=== PATIENT | male | born 1960 | race Caucasian/White ===

== ENCOUNTER 2017-01-10 12:01 | Inpatient (IN) | payer OTHER ==
[~2017-01-10] VITALS: Ht 175.3 cm; Wt 75.6 kg
[~2017-01-10 12:01] MED LIST: CEPH500T PO; HYDR8TAB PO; OMEP20TA86 PO; SIMV20TA4 PO; WARF10TA4 PO; WARF7.5T4 PO; triple swish PO
[2017-01-10 12:17] VITALS: BP 133/82; PULSE 80; RESP 22; O2SAT 97
[2017-01-10] MEDS ORDERED: Dextrose 5% 0.45% NaCl 1,000 ML IV SCH (12:30)
[2017-01-10] MEDS ORDERED: Ondansetron 2 mg/mL 2 mL Inj IV PRN (12:30)
[2017-01-10] MEDS ORDERED: 0.9% Sodium Chloride 1,000 ML IV ONE ×2 (12:30)
[2017-01-10 12:59] LABS: BASOPHILS % (AUTO) 0.4 % (0-3); EOSINOPHILS % (AUTO) 0.7 % (0-5); MONOCYTES % (AUTO) 21.6 % (4-12); Mean Corpuscular Hemoglobin 29.5 pg (27.0-35.0); Mean Corpuscular Volume 83.5 fL (81-100); Platelet Count 224 bil/L (150-400)
[2017-01-10 13:15] LABS: INR 1.16 ratio
[2017-01-10 13:30] LABS: Magnesium 0.8 mg/dL (1.6-2.6)
[2017-01-10] MEDS ORDERED: Magnesium Sulf 2 Gm/50mL Water 2 GM in IV Premix 1 EACH IV ONE ×2 (13:35→17:00)
[2017-01-10] MEDS ORDERED: KCl 40 mEq/D5W 500 mL 40 MEQ in IV Premix 1 EACH IV ONE (13:35)
--- NOTE | 2017-01-10 14:24 | ED.REPORT ---
HPI-General Illness Date of Service Jan 10, 2017 ED Provider: Bryce Foreman DO 56 y/o male with a hx of throat cancer (s/p chemotherapy completed a week ago) presents to the ED complaining of severe vomiting, with more than three episodes every day, for the past week. Associated sx include extreme weakness and shaking. The pt has not been able to keep anything down for several days and has been unable to stand up on his own without assistance. He has also been throwing up all the medications, including those for nausea. The pt was taken off Warfarin this week due to his high INR between 7-10. As per the , the pt had some blood in the vomit yesterday. He denies hematuria but reports it being very dark in color. The pt got 1-2 bags of fluid throughout this week, with little change in his sx. He also denies hematochezia. The pt was scheduled to get a PEG tube but his sx worsened so he came to the ED instead. Code status: full code Nursing Notes Stated Complaint: WEAKNESS/DEHYDRATION Chief Complaint: Male Abdominal Pain Nursing Notes Reviewed: Yes Allergies: Coded Allergies: No Known Allergies (Unverified , 01/10/17) Scheduled Fluconazole (Fluconazole Liquid) 10 Mg/1 Ml Susp.recon 10 ML PO DAILY Ondansetron ODT (Ondansetron ODT) 4 Mg Tab.rapdis 4 MG PO 5-6X daily Simvastatin (Simvastatin) 20 Mg Tablet 20 MG PO HS Warfarin Sodium (Warfarin Sodium) 7.5 Mg Tablet 11.25 MG PO Monday11/22/16 Scheduled PRN Hydromorphone (Hydromorphone) 8 Mg Tablet 8 MG PO Q6H PRN PRN Pain Lorazepam (Lorazepam) 0.5 Mg Tablet 0.5 MG PO TID PRN PRN For Anxiety General Time Seen by MD: 12:22 Chief Complaint Vomiting Hx Obtained From: Patient, Spouse Arrived By: Walk-in Sudden in Onset?: Yes Onset Occurred: 1 week ago Symptom Duration: Since onset Severity: Current: No pain currently Severity: Maximum: No pain Recent Healthcare: Recent doctor visit Similar Sx Previous: No Past Medical History Past Medical History Notes: Code status: Full code Past Medical History Throat cancer Past Surgical History Hernia/Tonsils Smoking History Former Smoker Social History Lives in [place] Other Social History: Good social support, Ambulatory Status Independent Review of Systems Full Review of Systems Constitutional: Reports: Weakness - generalized GI: Reports: Hematemesis (mild), Nausea, Vomiting, Denies: Hematochezia Male: Denies Hematuria Neurologic: Reports: Shaking Complete sys rev & neg: except as marked. Physical Exam Vital Signs Vital Signs Date Time Temp Pulse Resp B/P Pulse Ox O2 Delivery O2 Flow Rate FiO2 01/10/17 12:17 36.7 80 22 133/82 97 Room Air Initial VS: Reviewed Head / Eyes: Atraumatic, Normocephalic Neck: Supple Respiratory: Breath sounds normal, Clear to auscultation, No respiratory distress Cardiovascular: Regular rate & rhythm, Heart sounds normal, Intact distal pulses Abdomen / GI: Soft, Non-tender Extremities: Vascular intact, Neuro intact, No swelling, No tenderness Skin: Warm, Dry, No cyanosis Neurologic: Alert, Oriented, Nonfocal General/Constitutional: Awake, Alert, Cooperative Tremulous and pale Interpretation & Diagnostics Lab Results Interpretation Result Diagram: 01/10/17 1237 01/10/17 1237 Test 01/10/17 12:37 White Blood Count 2.7th/mm3 (3.8-10.1) Red Blood Count 4.13mil/mm3 (4.40-5.80) Hemoglobin 12.2g/dL (13.8-17.2) Hematocrit 34.5% (41.0-50.0) Mean Corpuscular Volume 83.5fL (81-100) Mean Corpuscular Hemoglobin 29.5pg (27.0-35.0) Mean Corpuscular Hemoglobin Concent 35.4% (32.0-37.0) Red Cell Distribution Width 13.4% (12.3-15.4) Platelet Count 224bil/L (150-400) Neutrophils (%) (Auto) 34.0% (40-74) Lymphocytes (%) (Auto) 42.9% (14-46) Monocytes (%) (Auto) 21.6% (4-12) Eosinophils (%) (Auto) 0.7% (0-5) Basophils (%) (Auto) 0.4% (0-3) Prothrombin Time 12.4sec (8.1-12.5) Prothromb Time International Ratio 1.16ratio Sodium Level 136mEq/L (134-144) Potassium Level 3.2mEq/L (3.5-5.2) Chloride Level 92mEq/L (97-108) Carbon Dioxide Level 23mmol/L (18-29) Blood Urea Nitrogen 6mg/dL (6-24) Creatinine 0.76mg/dL (0.76-1.27) Estimat Glomerular Filtration Rate 114mL/min (>59) Glucose Level 101mg/dL (60-99) Calcium Level 8.1mg/dL (8.5-10.1) Magnesium Level 0.8mg/dL (1.6-2.6) Total Bilirubin 1.0mg/dL (0.0-1.2) Aspartate Amino Transf (AST/SGOT) 22U/L (0-50) Alanine Aminotransferase (ALT/SGPT) 18U/L (0-44) Alkaline Phosphatase 81U/L (25-150) Total Protein 5.8g/dL (6.4-8.4) Albumin 3.3g/dL (3.4-5.0) Hold Amezcua Top Tube Received (Received) Re-Eval/Medical Decision Med Decision/Clinical Course Dehydration and severe lateral abnormality. Patient will be admitted for PEG tube placement and magnesium and potassium replacement. Time of Eval: 14:15 Re-Evaluation/Progress Note: Rechecked pt. Discussed lab results, diagnosis and plan to admit. Pt understands and agrees with the plan for admission. All questions addressed. Consultation #1: Referral / Consult Name: Yoseph Huffman MD Consulted With: Hospitalist Call Returned at: 14:40 Board Certified Family Physician: Will see patient, Agrees with eval, Agrees with plan, Accepts admit Consultation #2: Consulted With: Surgeon Call Returned at: 13:52 Board Certified Family Physician: Will see patient, Agrees with plan Note: Dr. Ferrara's nurse confirms Dr. Ferrara will see the pt on floor. Counseled Regarding: Diagnosis, Lab results, Need for admission Discharge & Departure Primary Impression: Dehydration Additional Impressions: Persistent vomiting Hypomagnesemia Disposition: ADMITTED TO HOSPITAL Discharge Condition All VS Reviewed: Yes Referrals: Benjamín Davalos MD (PCP) Scribe Attestation Portions of this note were transcribed by Manoj Macdonald. IDr.O'Kelley, personally performed the history, physical exam and medical decision-making;I reviewed and confirmed the accuracy of the information in the transcribed note. Signed by Danny Bills. 01/10/17 15:08 copies to: Benjamín Davalos MD, Timothy S DO Jan 10, 2017 14:24 Manoj Macdonald Jan 10, 2017 14:59
[2017-01-10] MEDS ORDERED: D5 0.45% NaCl + KCl 20 mEq/L 1,000 ML IV SCH (15:01)
[2017-01-10] MEDS ORDERED: Ondansetron 2 mg/mL 2 mL Inj IVPUSH PRN (15:05)
[2017-01-10] MEDS ORDERED: LORA0.5T PO (15:09)
[2017-01-10] MEDS ORDERED: ONDA4TAB12 PO (15:09)
[2017-01-10] MEDS ORDERED: FLUC10SU2 PO (15:09)
--- NOTE | 2017-01-10 15:14 | PCM.HPMED ---
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 Outpatient oncologist is Dr. Randall Reynolds. Patient recently was treated with combined modality therapy with cisplatin last given 12/22/2016 and radiation treatment last given December 30. Since last treatment patient had significant nausea with vomiting. Patient has lost almost 20 pounds since November 24. Has refused a PEG tube on multiple occasions. Patient reports odynophagia has been unable to maintain by mouth intake therefore has been going to oncology clinic for daily infusions. no diarrhea or change in bowel habits. Denies chest pain shortness of breath. Recent labs- 01/09-The white count is 2.2 with 62.1 neutrophils, hemoglobin 12.4 , hematocrit 37.1, platelets 117. The BUN and creatinine are 10 and 0.88, potassium 3.3, albumin remains normal at 3.6. ALT, AST, alkaline phosphatase and bilirubin are normal. Review of Systems: 12 point review of symptoms negative except for history of present illness. Allergies Coded Allergies: No Known Allergies (Unverified , 01/10/17) Home Medications 1. Cephalexin 500 mg. 2. Warfarin 15 mg. 3. Simvastatin 20 mg. 4. Hydromorphone 8 mg. 5. Omeprazole 20 mg. 6. Triple swish. PMH squamous carcinoma of the base of the tongue with two necrotic left neck nodes, stage TIMOTHY, Odynophagia history of portal vein thrombosis and and multiple superficial thromboses on chronic anticoagulation with Coumadin hyperlipidemia, malnutrition, GERD Surgical History Tonsillectomy. Sinus surgery. Hernia surgery. Colonoscopy approximately two years ago Social History Hx Alcohol Use: No Hx Substance Use: No Hx Tobacco Use: Yes Smoking Status: Former Smoker Living Arrangement: with Family Exam Vital Signs Vital Sign - Last Date Time Temp Pulse Resp B/P Pulse Ox O2 Delivery O2 Flow Rate FiO2 01/10/17 12:17 36.7 80 22 133/82 97 Room Air Exam Gen: NAD, AOx3. HEENT: NCAT, PERRLA, EOMI, MMM, sclera anicteric. Neck: Soft, supple, symmetrical, no thyromegaly/JVD/LAD. Resp: CTAB, no R/R/W. CV: RRR, nl S1/S2, no M/R/G, Abd: Soft, (+) BS, no guarding/rebound/organomegaly. Ext: +PP, -edema Skin: warm/dry/intact Neuro/Psych: No focal deficits, CN II-XII grossly intact. AAOx3, cooperative , appropriate mood/affect. 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 #squamous carcinoma of the base of the tongue with two necrotic left neck nodes , stage TIMOTHY. His Oncologist, Dr. Randall Reynolds, has discussed getting PEG. In past patient has refused but patient has now agreed and was to get it next week. - Surgery, Dr. Ferrara, will be seeing patient to evaluate for PEG tube. She is currently off Coumadin with INR 1.16. - We will keep nothing by mouth. - Nausea continue antiemetics. - Continue with IV fluids D5 half-normal K - Dilaudid IV prn. Give single dose Lovenox for DVT ppx today. - Follow-up with oncology and surgery at medications. #Neutropenia- likely secondary to chemotherapy. Initial ANC of 918. - If febrile we will culture and would then consider antibiotics. - Neutropenic precautions - Repeat CBC in a.m. #Malnutrition- 2/2 to above. c/o odynophagia. -Continue with IV fluids D5 half-normal K 20 mEq. -See plan above #history of portal vein thrombosis and and multiple superficial thromboses on chronic anticoagulation with Coumadin which was held due to INR greater than 10. Currently INR is subtherapeutic at 1.16. We will continue to hold Coumadin pending surgery evaluation. No bridging per Oncology, will give single dose Lovenox for DVT ppx today in case Surgery Wed. #Hypomagnesemia-severe, presentation on admission. Mg-0.8 initially. He received 2 g of mag sulfate, will give an additional 4 g. -Recheck magnesium in a.m. #Hypokalemia- replete with goal of potassium before. Will include IV fluids with potassium supplementation. -Repeat in a.m. #GERD- start famotidine IV Chronic Issues #HLD- continue home med atorvastatin Pain Evaluation: Adequate Pain Control VTE Prophylaxis Indicated: Contraindicated (Holding off bridging as may go to OR Mon AM per Oncology. ) VTE Prophylaxis: Sub-Q Enoxaparin VTE Mechanical Devices: Intermittant Pneumatic CD Resuscitation Status: CPR: Attempt Resuscitation Time spent 60 minutes Yoseph Huffman MD Jan 10, 2017 15:14
[2017-01-10] MEDS ORDERED: HYDROmorphone 0.5 mg/0.5 mL iSecure Syringe IVPUSH PRN ×2 (15:20→23:20)
[2017-01-10 15:41] VITALS: BP 128/80; PULSE 81; RESP 20; O2SAT 96
[2017-01-10] MEDS ORDERED: Alum-Mag Hydrox-Simeth 30 mL Suspension PO PRN (16:50)
[2017-01-10] MEDS ORDERED: Polyethylene Glycol (PEG) 17 Gm Powder PO PRN (16:50)
[2017-01-10] MEDS ORDERED: LORazepam 0.5 mg Tablet PO PRN (17:00)
[2017-01-10 17:04] VITALS: BP 126/78; PULSE 65; RESP 16; O2SAT 98
[2017-01-10] MEDS ORDERED: HYDROmorphone 1 mg/mL Inj IVPUSH PRN ×2 (17:05→18:05)
[2017-01-10] MEDS ORDERED: Sodium Chloride LOK Flush 10 mL Syringe IVFLUSH PRN ×2 (17:20)
--- NOTE | 2017-01-10 19:05 | NUR ---
Admit note- Received patient from Emergency dept. alert and oriented. Patient complaining of 7/10 abd. pain. No signs of resp distress. No difficulty swallowing. Oriented patient to room, call light, etc.
[2017-01-10 20:06] VITALS: BP 138/83; PULSE 65; RESP 20; O2SAT 99
[2017-01-10] MEDS ORDERED: 0.9% Sodium Chloride 100 ML ONE (20:46)
[2017-01-10] MEDS: Ondansetron 2 mg/mL 2 mL Inj IVPUSH PRN (21:02)
[2017-01-10] MEDS: Famotidine Inj 20 MG in IV Premix 1 EACH IV SCH (21:09)
[2017-01-10] MEDS: D5 0.45% NaCl + KCl 20 mEq/L 1,000 ML IV SCH (21:57)
[2017-01-10] MEDS: HYDROmorphone PCA 0.2 mg/mL 30 mL Inj IV PRN (23:59)
[2017-01-11] VITALS (12 sets, daily range): BP systolic 126–139; BP diastolic 76–90; PULSE 57–107; RESP 16–18; O2SAT 97–100
[2017-01-11] MEDS: Ondansetron 2 mg/mL 2 mL Inj IVPUSH PRN ×6 (02:01→23:11)
[2017-01-11] MEDS: D5 0.45% NaCl + KCl 20 mEq/L 1,000 ML IV SCH ×3 (02:50→18:45)
--- NOTE | 2017-01-11 04:20 | NUR ---
Pain/Nausea On initial assessment, patient stated pain 6/10 on pain scale. 2mg IVP of Dilaudid administered. Patient states that he takes 8mg PO at home. Dr. Grullon paged to increase dose. Physician ordered RELIEF PHARMACIST for patient. Patient complained of nausea throughout shift. 4mg Zofran IVP administered x2. Patient stated that the nausea is delayed reaction to radiation and chemo. VSS. D5 1/2NS + 20 meq K+ running at 100/hr. Call light within reach. Care continues.
[2017-01-11] MEDS: HYDROmorphone PCA 0.2 mg/mL 30 mL Inj IV PRN ×3 (05:05→19:03)
--- NOTE | 2017-01-11 05:46 | CONS ---
[address] [address] CONSULTATION REPORT PATIENT: DYLON CEDILLO : 1960 MR#: [id number] ADMIT: 01/10/2017 JOB ID: [id number] DATE OF SERVICE: 01/10/2017 CHIEF COMPLAINT: A 56-year-old gentleman with dysphagia, vomiting and weight loss from chemoradiation for head and neck cancer seen in consultation at the request of Bryce Perez D.O. HISTORY OF PRESENT ILLNESS: The patient is a 56-year-old gentleman who discovered a lump in his left neck in August 2016 which eventually led to the diagnosis of a T2 N2b squamous cell carcinoma of the base of the tongue. He has been undergoing treatment with cisplatin and radiation. I saw him on December 20, [address] Reynolds to discuss gastrostomy tube options. At that time, he was still yet to undergo one more cycle of chemoradiation, and the patient felt he was able to keep on his weight and may be actually put on a few pounds with protein shakes and liquid diet. Since then, he has finished his last cycle of chemoradiation, and he has significantly deteriorated in his nutritional intake with incessant vomiting and inability to keep even liquids down. He has lost over 20 pounds since even when I had seen him a few weeks ago. OTHER MEDICAL PROBLEMS: 1. Hypercoagulability with portal vein thrombosis in the past (he has been on Coumadin but has not taken it over the last week). 2. Hyperlipidemia. 3. Gastroesophageal reflux. PRIOR OPERATIONS: 1. Tonsillectomy. 2. Sinus surgery. 3. Umbilical hernia repair at [facility] five years ago. REVIEW OF SYSTEMS: Twelve point review of systems negative other than the pertinent positives noted in history of present illness and other medical problems. MEDICATIONS: 1. Warfarin on hold. 2. Simvastatin. 3. Hydromorphone. 4. Omeprazole. 5. Dexamethasone. 6. Lorazepam. 7. Ondansetron. ALLERGIES: No known drug allergies. FAMILY HISTORY: Grandfather had stroke and [place]. Mother had a stroke. SOCIAL HISTORY: He smokes cigars occasionally. He used to drink alcohol about three drinks every day. 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 INVESTIGATIONS: A PET-CT, November 04, 2016, mass involving the base of tongue with maximum SUV of 14.9 with enlarged left level 2 lymphadenopathy with maximum SUV of 3.9 and 3.5. No evidence of distant disease beyond that. LABORATORIES: January 10, 2017, WBC of 2.7, hemoglobin 12.2, platelet count 224. Potassium of 3.2, chloride of 92, glucose of 101, magnesium of 0.8, albumin of 3.3. INR of 1.16. PHYSICAL EXAMINATION: A 56-year-old gentleman appears weak. BMI 24.6, temperature 36.7, pulse 81, blood pressure 128/80, saturating 96% on room air. Eyes: Normal pupils, conjunctivae. Ears, nose and throat: Oropharynx mucosa appears red. Neck: Palpable left cervical adenopathy. Respiratory: Normal effort, clear to auscultation. Cardiovascular: Regular rate and rhythm. Chest: Normal. Gastrointestinal: Abdomen is soft, well-healed umbilical incision. Genitourinary: Deferred. Lymphatic: No other adenopathy beyond the neck. Musculoskeletal: Normal strength in extremities. Skin: Normal. Neurologic: No focal deficits. Psychiatric: Alert, appropriate. ASSESSMENT AND PLAN: T2 N2b squamous cell carcinoma, status post chemoradiation with malnutrition secondary to diet. Recommended laparoscopic gastrostomy which I plan to do December. Now that he is off the warfarin I would hold off on long-acting anticoagulants until the procedure. Discussed the risks, benefits and alternatives, and the patient and his agree to proceed. [facility]
[2017-01-11 06:06] LABS: BASOPHILS % (AUTO) 0.5 % (0-3); EOSINOPHILS % (AUTO) 1.6 % (0-5); MONOCYTES % (AUTO) 21.4 % (4-12); Mean Corpuscular Volume 85.4 fL (81-100); NEUTROPHILS % (AUTO) 31.7 % (40-74); Platelet Count 184 bil/L (150-400)
[2017-01-11 06:17] LABS: Phosphorus 2.2 mg/dL (2.5-4.9)
[2017-01-11] MEDS ORDERED: KCl 40 mEq/100 mL (CENTRAL) 40 MEQ in IV Premix 1 EACH IV ONE (07:20)
[2017-01-11] MEDS ORDERED: Magnesium Sulf 4 Gm/100 mL H2O 4 GM in IV Premix 1 EACH IV ONE (07:20)
[2017-01-11] MEDS: Famotidine Inj 20 MG in IV Premix 1 EACH IV SCH ×2 (09:10→20:21)
[2017-01-11] MEDS: Fluconazole Inj 200 MG in IV Premix 1 EACH IV SCH (10:23)
--- NOTE | 2017-01-11 12:48 | NUR ---
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 Reynolds. Patient has lost almost 20 pounds since November 24. Has refused a PEG tube on multiple occasions. Patient reports odynophagia has been unable to maintain by mouth intake and therefore has been going to oncology clinic for daily infusions. PEG tube now scheduled for tomorrow, 01/12. PMHx:Squamous carcinoma of the base of the tongue with two necrotic left neck nodes, stage TIMOTHY, odynophagia, portal vein thrombosis with multiple superficial thromboses on chronic anticoagulation with Coumadin, dyslipidemia, malnutrition, GERD. DIET:NPO. LABS: Reviewed. K+ 2.9, Chloride 95, BUN 34, Cr 0.72, Glu 108, Ca 7.2, Phos 2.2, Mg 1.0, Alb 2.7. MEDICATIONS: Reviewed. NUTRITION FOCUSED PHYSICAL ASSESSMENT: GI symptoms / stool: No stool reported. Tru: 16. Skin Integrity: No issues reported. ANTHROPOMETRICS: Current Wt: 75.6 kgBMI: 24.0 kg/m2. Weight loss: 23.2 kg x 3 months (23.48%), 10.1 kg x 1 month (11.79%) = severe malnutrition. IBW: 72.73% (104% IBW) ESTIMATED NEEDS (SEVERE MALNUTRITION, STAGE TIMOTHY H&N CANCER): Calories: 2268 - 2646 kcal (30 - 35 kcal / kg BW) Protein: 113 - 151 g protein (1.5 - 2.0 g / kg BW) Fluid: Approx. 2646 mL fluid (35 mL / kg BW) NUTRITION DIAGNOSIS: 1)Inadequate oral intake related to altered GI function, as evidenced by severe malnutrition. INTERVENTION: 1) PEG tube recommendation follows; orders in chart for provider authorization. Recommend Jevity 1.5 at 15 mL/hr x 24 hr. Once tolerance established, advance 5 ml every 4 hr. to goal rate 70 mL/hr x 23 hr. Once enteral feeding at goal rate, recommend transition to nocturnal bolus feedings: advance 5 ml every 4 hr. to goal rate 107 mL x 15 hr. Enteral feeding at goal will provide 2415 kcal, 103 g protein, sufficient to meet 100% kcal / approx. 82% protein. 2) Recommend supplement enteral feeding with approx. 25 - 35 g protein to better meet protein needs. MONITOR/EVALUATE: PEG tube placement, enteral feeding initiation / tolerance, PO intake, labs, GI/nutrition status. Follow up per high nutrition risk guidelines. Addendum: 01/11/17 at [address] In the event IV fluids are not ordered, the patient will require 35 mL H2O every hour flush dose.
--- NOTE | 2017-01-11 15:36 | PCM.PNMED ---
Subjective Date of Service Jan 11, 2017 Subjective Patient reports persistent nausea overnight. Pain was moderately well controlled on Dilaudid [employer]. Abdominal pain is slightly improved. Still cannot tolerate anything by by mouth. Exam Vital Signs Vital Sign - Last Date Time Temp Pulse Resp B/P Pulse Ox O2 Delivery O2 Flow Rate FiO2 01/11/17 13:04 99 01/11/17 12:59 36.9 61 18 134/83 Room Air Intake and Output 01/10/17 01/10/17 01/11/17 Cumulative From/Thru 15:00 23:00 07:00 01/10/17 12:17 - 01/11/17 06:35 Intake Total 2000 ml 0 ml 4858 ml 6858 ml Output Total 0 ml 2425 ml 2425 ml Balance 2000 ml 0 ml 2433 ml 4433 ml Intake Oral 0 ml 0 ml 0 ml IV Total 2000 ml 4858 ml 6858 ml Output Urine Total 0 ml 2425 ml 2425 ml Exam Gen: NAD, AOx3. Cachectic appearing HEENT: NCAT, PERRLA, EOMI, MMM, sclera anicteric. + Oral thrush evident Neck: Soft, supple, symmetrical, palpable left anterior cervical node, nontender. Resp: CTAB, no R/R/W. CV: RRR, nl S1/S2, no M/R/G, Abd: Soft, (+) BS, no guarding/rebound/organomegaly. Ext: +PP, -edema Skin: warm/dry/intact Neuro/Psych: No focal deficits, CN II-XII grossly intact. AAOx3, cooperative , appropriate mood/affect. IVs and Medications Medications Reviewed: Medications were reviewed in detail Lab and Diagnostics CBC Test 01/11/17 05:15 White Blood Count 1.9th/mm3 (3.8-10.1) Red Blood Count 3.55mil/mm3 (4.40-5.80) Hemoglobin 10.3g/dL (13.8-17.2) Hematocrit 30.3% (41.0-50.0) Mean Corpuscular Volume 85.4fL (81-100) Mean Corpuscular Hemoglobin 29.0pg (27.0-35.0) Mean Corpuscular Hemoglobin Concent 34.0% (32.0-37.0) Red Cell Distribution Width 13.3% (12.3-15.4) Platelet Count 184bil/L (150-400) Neutrophils (%) (Auto) 31.7% (40-74) Lymphocytes (%) (Auto) 44.3% (14-46) Monocytes (%) (Auto) 21.4% (4-12) Eosinophils (%) (Auto) 1.6% (0-5) Basophils (%) (Auto) 0.5% (0-3) CMP Test 01/10/17 12:37 01/11/17 05:15 Hold Amezcua Top Tube Received Sodium Level 136mEq/L Potassium Level 2.9mEq/L Chloride Level 95mEq/L Carbon Dioxide Level 27mmol/L Blood Urea Nitrogen 3mg/dL Creatinine 0.72mg/dL Estimat Glomerular Filtration Rate 121mL/min Glucose Level 108mg/dL Calcium Level 7.2mg/dL Phosphorus Level 2.2mg/dL Magnesium Level 1.0mg/dL Total Bilirubin 0.8mg/dL Aspartate Amino Transf (AST/SGOT) 17U/L Alanine Aminotransferase (ALT/SGPT) 14U/L Alkaline Phosphatase 67U/L Total Protein 4.5g/dL Albumin 2.7g/dL Result Diagram: 01/11/1715 01/11/17 0515 Assessment & Plan 56-year-old male with history of hyperlipidemia, malnutrition, history of portal vein thrombosis on chronic anticoagulation with Coumadin, 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 #intractable nausea- present on admission, active. -Improving with IV Zofran, and IV Ativan. patient still complained of some nausea. Patient is receiving IV fluids and electrolyte repletion as necessary. -We will will recheck BMP including magnesium and phosphorus this afternoon #squamous carcinoma of the base of the tongue with two necrotic left neck nodes , stage TIMOTHY- POA, active. Completed treatment with combined modality therapy with cisplatin last given 12/22/2016 and radiation treatment last given December 30. His Oncologist, Dr. Randall Reynolds, has discussed getting PEG and patient recently agreed secondary to dysphagia. - Surgery consulted, Dr. Tamez is following and is planning on laparoscopic gastrostomy tube to be placed January 12. - He is currently off Coumadin with INR 1.16 on admission. We will continue to hold Coumadin. Her bridging with Lovenox with last dose to be given tonight at 9:30 PM. - We will keep nothing by mouth. - Nausea continue antiemetics. - Continue with IV fluids D5 half-normal K - Dilaudid [employer] and 1 mg every hour IV prn. - We will follow-up surgery recommendations postop. #Neutropenia- WBC 2.7 on admit, now 1.9 likely secondary to chemotherapy. Initial ANC of 918->602 - If febrile we will culture and would then consider antibiotics. - Neutropenic precautions. - Repeat CBC in a.m. #Malnutrition- 2/2 to 2 dysphagia and odynophagia. Patient has loss about 20- 40 pounds over the last 2 months. . -Continue with IV fluids D5 half-normal K 20 mEq. -Plan for PEG tube as above. -Afterward Nutrition support required through PEG tube feeds for 3 months or greater upon discharge #history of portal vein thrombosis and and multiple superficial thromboses on chronic anticoagulation with Coumadin which was held due to INR greater than 10. Currently INR is subtherapeutic at 1.16. We will continue to hold Coumadin pending surgery evaluation. No bridging per Oncology, will give single dose Lovenox for DVT ppx today in case Surgery Wed. #Electrolyte deficiencies -Hypomagnesemia-severe, presentation on admission. Mg-0.8 initially. He received 4 g of mag sulfate on admit. -We will give another 4 g of mag sulfate today and recheck labs at 4 PM -Hypokalemia- replete with goal of potassium greater than 4. Will include IV fluids with potassium supplementation. -Repleted as necessary. #GERD- start famotidine IV Chronic Issues #HLD- continue home med atorvastatin Dispo- given patient's complexity of multiple issues and pending surgery will likely remain admitted for greater than 2 minutes. - -Nutrition support required through PEG tube feeds for 3 months or greater upon discharge VTE Prophylaxis: Sub-Q Enoxaparin VTE Mechanical Devices: Intermittant Pneumatic CD Resuscitation Status: CPR: Attempt Resuscitation Yoseph Huffman MD Jan 11, 2017 15:36
[2017-01-11 16:13] LABS: INR 1.07 ratio
[2017-01-11 16:17] LABS: Magnesium 2.6 mg/dL (1.6-2.6); Phosphorus 1.9 mg/dL (2.5-4.9)
--- NOTE | 2017-01-11 16:21 | NUR ---
Social Work- Initial Assessment/Multidisciplinary Rounds Data: See Initial Assessment. Pt is a 56 year old male admitted 01/10/17 for dehydration, persistent vomiting per H&P. Pt's insurance is [facility]. Pt's PCP is Benjamín Davalos MD. Pt's oncologist is Rodolfo. Pt's readmit risk scores is 3. Pt screened in to a case management assessment due to multiple providers being involved in his care. Pt discussed in rounds, pt will require tube feeding at home and will receive a PEG tube tomorrow. SW met with pt's at bedside regarding discharge plan. Pt was asleep during this assessment and did not participate. Pt's capacity for self-care is not assessed as BRAIN WAVE TECHNICIAN did not speak to pt during this assessment. Pt and reside in [place] with their two sons- 15 and 18 years old. 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 Pt continues to drive and is independent at baseline. Pt uses no DME. Pt has no HH or SNF history. Pt has no LTC or VA benefits. Pt has no DPOA but SW provided pt's with the paperwork to complete DPOA. Pt appears to have good supports through his family and SW does not anticipate any concerns related to pt's capacity for self-care at this time. T/C from pt's Oncology CM September reports that she is coordinating PEG tube care and dressing changes through [facility] and the tube feeding supplies through [facility]. September reports that she is working with pt's insurance for these services. Pt anticipated to discharge home with to transport via POV, PEG tube care through [facility] and tube feeding supplies through [facility]. SW will continue to follow. Assessment: Pt for whom tube feeding is medically necessary Plan: Oncology CM is coordinating pt's HH and Infusion needs. Pt anticipated to discharge home with to transport via POV, PEG tube care through [facility] and tube feeding supplies through [facility]. SW will continue to follow. IVONNE Mathis Addendum: 01/11/17 at 1627 by CALVIN MCGEE Amended: Links added.
[2017-01-11] MEDS ORDERED: Potassium Phos (mMol) Inj 30 MMOL in Dextrose 5% 500 ML IV ONE (17:10)
[2017-01-11] MEDS ORDERED: KCL IV ONE (17:10)
--- NOTE | 2017-01-11 17:28 | NUR ---
K+/Mg++/Telemetry made aware at start of shift of critical Mg++. Orders received for K+ and Mg++ riders. Per protocol, pt needing to be on Telemetry. Call to Telemetry. Shortage on boxes. Delay in start of IV riders d/t no telemetry. Once available, ENFORCEMENT OFFICER placed leads and Mg++ infusing first. Upon completion, pt started on K+ rider. Update to telemetry of infusing completion time. At ~1710, pt with new order for K+ Phos. This infusion also requiring Telemetry. durable medical equipment technician made aware. Care continues - per tele: NSR.
[2017-01-12] VITALS (18 sets, daily range): BP systolic 99–137; BP diastolic 74–92; PULSE 69–102; RESP 8–20; O2SAT 93–99
[2017-01-12] MEDS: Ondansetron 2 mg/mL 2 mL Inj IVPUSH PRN ×4 (04:48→18:02)
[2017-01-12] MEDS: D5 0.45% NaCl + KCl 20 mEq/L 1,000 ML IV SCH ×2 (04:50→18:34)
[2017-01-12] MEDS ORDERED: Lactated Ringer's 1,000 ML IV SCH ×2 (05:00→15:58)
[2017-01-12 05:32] LABS: BASOPHILS % (AUTO) 0 % (0-3); EOSINOPHILS % (AUTO) 2 % (0-5); MONOCYTES % (AUTO) 23 % (4-12); Mean Corpuscular Hemoglobin 29.3 pg (27.0-35.0); Mean Corpuscular Volume 85 fL (81-100); NEUTROPHILS % (AUTO) 30 % (40-74); Platelet Count 208 bil/L (150-400)
[2017-01-12 06:04] LABS: Phosphorus 2.9 mg/dL (2.5-4.9)
[2017-01-12 06:19] LABS: Magnesium 1.2 mg/dL (1.6-2.6)
[2017-01-12] MEDS ORDERED: Magnesium Sulf 4 Gm/100 mL H2O 4 GM in IV Premix 1 EACH IV ONE (06:30)
[2017-01-12] MEDS ORDERED: KCl 40 mEq/D5W 500 mL 40 MEQ in IV Premix 1 EACH IV ONE (06:30)
--- NOTE | 2017-01-12 06:30 | NUR ---
Nausea/Critical Mg c/o constant nausea on initial assessment. Prn Ativan and Zofran given and effective with one small emesis episode noted between doses. Critical Mg 1.2 received from lab. notified via paging with no verbal response but new orders noted for IV Mg to be administered. No noted changes on telemetry per hvac service tech this shift.
[2017-01-12] MEDS: HYDROmorphone PCA 0.2 mg/mL 30 mL Inj IV PRN ×3 (08:31→21:11)
[2017-01-12] MEDS: Famotidine Inj 20 MG in IV Premix 1 EACH IV SCH ×2 (08:42→21:11)
[2017-01-12] MEDS: Fluconazole Inj 200 MG in IV Premix 1 EACH IV SCH (09:45)
--- NOTE | 2017-01-12 12:12 | NUR ---
Social Work- Readiness for Discharge/Multidisciplinary Rounds Data: EMR reviewed. Pt is on day 2 of hospitalization. Pt discussed in rounds. Pt is not medically stable for discharge anticipate 1-2 more days. Pt will have PEG tube placed today. Pt will require slow start of his tube feedings. No SW needs identified in rounds. T/C to oncology NENA September [phone] regarding pt's PEG tube placement and coordination of tube feeds and post PEG tube care. September has the orders from Oncology as well as the paperwork to provide to [facility] and [facility]. September confirms that she has received written orders from Oncology and no additional tube feed orders are required for this CHIPPER MACHINE OPERATOR. September will notify the Events [facility] that pt has had his PEG tube placed and she anticipates that the companies will contact pt and pt's directly to coordinate services. VERONICA will continue to work with Onc NENA and MD regarding discharge plan. Pt to discharge home with [facility] services for post PEG tube care and [facility] for tube feed supplies. VERONICA will continue to follow. Assessment: Pt for whom tube feeds and post PEG tube care are medically necessary Plan: Oncology NENA has obtained orders for tube feeds through Oncology MD. VERONICA will continue to work with Onc CM and MD regarding discharge plan. Pt to discharge home with [facility] services for post PEG tube care and [facility] for tube feed supplies. VERONICA will continue to follow. Olga Vu, CHIPPER MACHINE OPERATOR Addendum: 01/12/17 at 1627 by CALVIN VU VERONICA received T/C from Jackeline at [facility] regarding pt's referral for post PEG tube care. Jackeline requested copy of the written orders for HH as well as a F2F. Jackeline states that she has a F2F from November and will check if this can be used. VERONICA contacted Onc CM September regarding these requests and left message. Pt's written orders may be on chart, SW will check. Onc NENA and Floor CHIPPER MACHINE OPERATOR will continue to work together on this patient. VERONICA will continue to follow. IVONNE Mathis
[2017-01-12] MEDS ORDERED: Ondansetron 2 mg/mL 2 mL Inj ONE (12:39)
[2017-01-12] MEDS ORDERED: Rocuronium 10 mg/mL 5 mL Inj ONE (12:39)
[2017-01-12] MEDS ORDERED: fentaNYL-PF 50 mCg/mL 2 mL Inj ONE (12:39)
[2017-01-12] MEDS ORDERED: Phenylephrine/NS 100 mCg/mL 10 mL Syringe IVPUSH ONE (12:39)
[2017-01-12] MEDS ORDERED: Propofol 10,000 mCg/mL 20 mL Inj ONE (12:39)
[2017-01-12] MEDS ORDERED: Glycopyrrolate 0.2 MG/ML 1mL Inj ONE (12:39)
[2017-01-12] MEDS ORDERED: Neostigmine 1 mg/mL 10 mL Inj ONE (12:39)
[2017-01-12] MEDS ORDERED: Dexamethasone 4 mg/mL Inj ONE (12:39)
[2017-01-12] MEDS ORDERED: Lactated Ringer's 1,000 ML IV ONE ×2 (13:51→17:26)
--- NOTE | 2017-01-12 13:52 | NUR ---
terminal system operatornet coordinator note: Prior authorization for Post PEG Tube Care, DME, Tube Feedings and Supplies faxed to [facility], [facility], and [facility]. Additional information will be faxed to [facility] when operative report becomes available. I have personally talked with the Clinical Review at [facility] and they are aware patient is having his PEG tube placed today. [facility] is waiting for the operative report. [facility] has been advised patient's anticipated discharge date is Monday, January 14. Will continue to follow and provide assistance as needed. Alexus Wu RN, OCN terminal system operatormaterial planning analyst
--- NOTE | 2017-01-12 14:33 | NUR ---
Off Unit to OR at 1430; A&Ox3, KOCH, Stable condition, vehicle technician aware of pt off unit. PICC SL - received additional dose BIOGEOGRAPHER prior to leaving, SCDs with pt, left via bed. Consent signed yesterday and pt met with anesthesia prior to leaving unit. Report provided to Mohan prior to pt pickup to OR. Chart with pt Await pt return .
--- NOTE | 2017-01-12 14:34 | PCM.HPANE ---
Patient Data Surgeon Admitting Provider:Yoseph Huffman MD Attending Provider:Yoseph Huffman MD Primary Care Physician:Benjamín Davalos MD Other Provider: Reason for Visit Dehydration, Persistant Vomiting DEHYDRATION, PERSISTANT VOMITING Ht/WT & BMI Height (Feet): 5 Height (Inches): 9.00 Weight (Kilograms): 75.600 Body Mass Index 24.69 Allergies Coded Allergies: No Known Allergies (Unverified , 01/10/17) Past Anesthesia History Anesthesia History: Denies:: Anesthesia Reactions Diabetes History Hx Diabetes?: No MRSA MRSA: No Medications Reported Medications Fluconazole (Fluconazole Liquid)10 Mg/1 Ml Susp.recon10 Ml PO DAILY #140 01/10/17 Lorazepam 0.5 Mg Tablet0.5 Mg PO TID PRN For Anxiety Ref 0 01/10/17 Ondansetron ODT 4 Mg Tab.rapdis4 Mg PO 5-6X daily #30 01/10/17 Hydromorphone 8 Mg Tablet8 Mg PO Q6H PRN Pain Ref 0 12/13/16 Warfarin Sodium 7.5 Mg Woxgli48.25 Mg PO MONDAY Ref 0 11/22/16 11/17/16 Simvastatin 20 Mg Makktc10 Mg PO HS Ref 0 10/20/16 Discontinued Reported Medications [triple swish] No Conflict Check Po 12/13/16 Cephalexin 500 Mg Zejppc351 Mg PO QID Ref 0 12/13/16 Warfarin Sodium 10 Mg Sgrefe40 Mg PO DAILY EXCEPT MONDAY Ref 0 11/22/16 11/17/16 Omeprazole 20 Mg Tablet.dr20 Mg PO DAILY 10/20/16 History History of ENT Problems?: Yes HEENT History: Positive for:: Abnormal Airway Dysphagia Denture Type: None Teeth Condition: Within Normal Limits Hx of Heart Problems?: Yes Cardiovascular History: Positive for:: Heart Murmur Denies:: AICD Abdominal Aortic Aneurism Atrial Fibrillation Cardiac Surgery Chest Pain Congestive Heart Failure Coronary Artery Disease Edema Hypertension Irregular Heartbeat Pacemaker Peripheral Vascular Rheumatic Fever Thrombophlebitis Valvular Heart Disease Hx of Respiratory Problem?: No Respiratory History: Denies:: Asthma COPD Chest Surgery Cough Dyspnea Emphysema Hemoptysis Oxygen Administration Pneumonia Pulmonary Embolism Tuberculosis Use of C-PAP Machine Use of Inhalers / NEBS Hx Neurologic Problems?: No Neurological History: Denies:: Alzheimer's Disease CVA Dementia Dizziness Headaches Parkinson's Disease Seizures Hx of GI Problems?: Yes Hx of Problems?: No Genitourinary History: Denies:: Urinary Tract Infection HX of Peritoneal Dialysis: No Male Hx: Denies:: Prostate Problems Scrotal Mass Testicular Surgery Hx Musculoskeletal Problems?: No Hx of Psycho/Social Problems?: No Hx Surgeries?: Yes (T&A hiatal hernia) Hx Any Other Health Problems?: Yes Other History: Positive for:: Cancer (Cancer of tongue and throat) Hospitalization Denies:: Thyroid Disease History Blood Transfusions: Positive for:: Accept Blood Products? Denies:: Blood Transfuse Reaction Blood Transfusions Hx Diabetes: No Hx Alcohol Use: Yes (not now)Hx Substance Use: No Smoking Status: Former Smoker Have You Smoked inLast 12 mo: No Stop/Bang Treated for Sleep Apnea?: No Do You Have a CPAP Machine?: No S-Snoring: Do You Snore Loudly: Yes T-Tired: feel tired, fatigued: Yes O-Obsered: Observed not breath: Yes P-Blood Pressure: treated: Yes B- Body Mass Index > 35 kg/m2: No A- Age over 50: Yes N- Neck Large Circumference: No G- Gender Male: Yes ANDREA Total Score: 5 Risk Assessment Category Category 1A: Patient has history of documented sleep apnea, and HAS NOT received any narcotic, sedative or anesthesia administration during this stay. Category 1B: Patient has history of documented sleep apnea, and HAS received any narcotic , sedative or anesthesia administration during this stay Category 2: Patient has SUSPECTED Obstructive Sleep Apnea, and HAS received any narcotic , sedative or anesthesia administration during this stay. Category 3: Patient has SUSPECTED Obstructive Sleep Apnea and HAS NOT received narcotic, sedative or anesthesia administration during this stay. Category 4: Outpatient in Procedural Areas with known sleep apnea or who screen positive for High Risk via the STOP/BANG questionnaire. Exam Exam Vital Signs Vital Signs Date Time Temp Pulse Resp B/P Pulse Ox O2 Delivery O2 Flow Rate FiO2 01/12/17 06:05 16 99 01/12/17 05:55 37.1 86 16 119/78 96 Room Air 01/12/17 04:56 69 01/12/17 01:15 37.3 84 16 119/81 99 Room Air 01/12/17 00:53 16 98 General Appearance: Alert, Oriented X3, Cooperative, No Acute Distress HEENT/AIRWAY: MP 3 Lungs: Clear to Auscultation Heart: Exam Unremarkable Meds/Labs/Diagnostics Admission Meds Current Medications Fluconazole/ Sodium Chloride/ Premix (Diflucan Inj/IV Premix) 100 ml @ 100 mls/ hr Q24 IV Last administered on 01/11/17 10:23; Start 01/11/17 at 08:30 Enoxaparin Sodium 80 mg 80 mg ONCE ONCE SUBQ Last administered on 01/11/17 20 :32; Start 01/11/17 at 21:30; Stop 01/11/17 at 21:31; Status DC Potassium Phosphate 30 mmol/ Dextrose/Water 510 ml @ 63.75 mls/ hr ONCE ONCE IV Last administered on 01/11/17 19:38; Start 01/11/17 at 17:10; Stop at 01:09; Status DC Magnesium Sulfate/ Premix (Magnesium Sulf 4 Gm/100 mL H2O/ IV Premix) 100 ml @ 33.333 mls/ hr ONCE ONCE IV Last administered on 01/12/17 07:17; Start at 06:30; Stop 01/12/17 at 09:29 Labs Test 01/10/17 12:37 01/11/17 15:47 01/12/17 05:00 Hold Amezcua Top Tube Received (Received) Prothrombin Time 11.5sec (8.1-12.5) Prothromb Time International Ratio 1.07ratio White Blood Count 2.9th/mm3 (3.8-10.1) Red Blood Count 4.10mil/mm3 (4.40-5.80) Hemoglobin 12.0g/dL (13.8-17.2) Hematocrit 34.9% (41.0-50.0) Mean Corpuscular Volume 85fL (81-100) Mean Corpuscular Hemoglobin 29.3pg (27.0-35.0) Mean Corpuscular Hemoglobin Concent 34.4% (32.0-37.0) Red Cell Distribution Width 13.1% (12.3-15.4) Platelet Count 208bil/L (150-400) Neutrophils (%) (Auto) 30% (40-74) Lymphocytes (%) (Auto) 45% (14-46) Monocytes (%) (Auto) 23% (4-12) Eosinophils (%) (Auto) 2% (0-5) Basophils (%) (Auto) 0% (0-3) Sodium Level 134mEq/L (134-144) Potassium Level 3.6mEq/L (3.5-5.2) Chloride Level 94mEq/L (97-108) Carbon Dioxide Level 24mmol/L (18-29) Blood Urea Nitrogen 3mg/dL (6-24) Creatinine 0.77mg/dL (0.76-1.27) Estimat Glomerular Filtration Rate 112mL/min (>59) Glucose Level 136mg/dL (60-99) Calcium Level 7.5mg/dL (8.5-10.1) Phosphorus Level 2.9mg/dL (2.5-4.9) Magnesium Level 1.2mg/dL (1.6-2.6) Total Bilirubin 1.1mg/dL (0.0-1.2) Aspartate Amino Transf (AST/SGOT) 19U/L (0-50) Alanine Aminotransferase (ALT/SGPT) 14U/L (0-44) Alkaline Phosphatase 80U/L (25-150) Total Protein 5.1g/dL (6.4-8.4) Albumin 3.1g/dL (3.4-5.0) Plan Impression Patient chart reviewed, patient interviewed and anesthestic plan with risks, benefits, and alternatives discussed, and informed consent obtained. ASA Physical Status: ASA3 Severe Disease Anesthetic Support Modalities: Fiberoptic Scope Anesthetic Plan: GA Bene/Risks/Altern/Consents: Yes HP Complete Prior to Induction: Yes Joshua tSevens MD Jan 12, 2017 07:51
[2017-01-12] MEDS ORDERED: Bupivacaine-MPF 0.25% 30 mL Inj INFILTRATE ONE (14:42)
[2017-01-12] MEDS ORDERED: Lactated Ringer's 500 ML IV PRN (15:58)
[2017-01-12] MEDS ORDERED: HYDROmorphone 1 mg/mL Inj IVPUSH PRN (16:00)
[2017-01-12] MEDS ORDERED: Ondansetron 2 mg/mL 2 mL Inj IVPUSH PRN (16:00)
[2017-01-12] MEDS ORDERED: fentaNYL-PF 50 mCg/mL 2 mL Inj IVPUSH PRN (16:00)
[2017-01-12] MEDS ORDERED: MetoCLOpramide 5 mg/mL 2 mL Inj IVPUSH PRN (16:00)
[2017-01-12] MEDS ORDERED: Dexamethasone 4 mg/mL Inj IVPUSH PRN (16:00)
[2017-01-12] MEDS ORDERED: Phenylephrine 10,000 mCg/mL Inj IVPUSH PRN (16:00)
[2017-01-12] MEDS ORDERED: EPHEDrine Sulfate 50 mg/mL Inj IVPUSH PRN (16:00)
[2017-01-12] MEDS ORDERED: Magnesium Sulf 2 Gm/50mL Water 2 GM in IV Premix 1 EACH IV ONE (16:20)
--- NOTE | 2017-01-12 16:22 | PCM.PNMED ---
Subjective Date of Service Jan 12, 2017 Subjective Patient still some nausea overnight. Pain is well-controlled with CLAMP REMOVER. Exam Vital Signs Vital Sign - Last Date Time Temp Pulse Resp B/P Pulse Ox O2 Delivery O2 Flow Rate FiO2 01/12/17 14:32 99 01/12/17 13:24 36.9 80 19 123/83 Room Air Intake and Output 01/11/17 01/11/17 01/12/17 Cumulative From/Thru 15:00 23:00 07:00 01/10/17 12:17 - 01/12/17 06:05 Intake Total 1516 ml 1534 ml 9908 ml Output Total 1900 ml 4325 ml Balance -384 ml 1534 ml 5583 ml Intake Oral 0 ml 0 ml IV Total 1516 ml 1534 ml 9908 ml Output Urine Total 1900 ml 4325 ml Exam Gen: NAD, AOx3. Cachectic appearing HEENT: NCAT, PERRLA, EOMI, MMM, sclera anicteric. + Oral thrush evident Neck: Soft, supple, symmetrical, palpable left anterior cervical node, nontender. Resp: CTAB, no R/R/W. CV: RRR, nl S1/S2, no M/R/G, Abd: Soft, (+) BS, no guarding/rebound/organomegaly. Ext: +PP, -edema Skin: warm/dry/intact Neuro/Psych: No focal deficits, CN II-XII grossly intact. AAOx3, cooperative , appropriate mood/affect. 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 #intractable nausea- present on admission, active. -Improving with IV Zofran, and IV Ativan. patient still complained of some nausea. Patient is receiving IV fluids and electrolyte repletion as necessary. -We will will recheck BMP including magnesium and phosphorus this afternoon -Patient going for PEG tube today. 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 Completed treatment with combined modality therapy with cisplatin last given 12/22/2016 and radiation treatment last given December 30. His Oncologist, Dr. Randall Reynolds, has discussed getting PEG and patient recently agreed secondary to dysphagia. - Surgery consulted, Dr. Tamez is following and is planning on laparoscopic gastrostomy tube to be placed January 12. - He is currently off Coumadin with INR 1.16 on admission. We will continue to hold Coumadin. Her bridging with Lovenox with last dose to be given tonight at 9:30 PM. - We will keep nothing by mouth. - Nausea continue antiemetics. - Continue with IV fluids D5 half-normal K - Dilaudid CLAMP REMOVER and 1 mg every hour IV prn. - We will follow-up surgery recommendations postop. #Neutropenia, present on admit, activ- WBC 2.7 on admit, now 1.9 likely secondary to chemotherapy. Initial ANC of 918->602 - If febrile we will culture and would then consider antibiotics. - Neutropenic precautions. -Per oncology will start Neupogen 480 mg daily for 3 days #Malnutrition- present on admit, active. 2/2 to 2 dysphagia and odynophagia. Patient has loss about 20-40 pounds over the last 2 months. . -Continue with IV fluids D5 half-normal K 20 mEq. -Plan for PEG tube as above. -Afterward Nutrition support required through PEG tube feeds for 3 months or greater upon discharge #history of portal vein thrombosis and and multiple superficial thromboses- POA , active. on chronic anticoagulation with Coumadin which was held due to INR greater than 10. Currently INR is subtherapeutic at 1.16. We will continue to hold Coumadin pending surgery evaluation. No bridging per Oncology, will give single dose Lovenox for DVT ppx today in case Surgery Wed.- - Hold anticoagulation for at least 24 hours postop. - We will attempt to transition to Lovenox or NOAC due to difficult to control INR. #Electrolyte deficiencies, present on admit, active. -Hypomagnesemia-severe, presentation on admission. Mg-0.8 initially. He received 4 g of mag sulfate on admit. -We will give another 4 g of mag sulfate today and recheck labs at 4 PM -Hypokalemia- replete with goal of potassium greater than 4. Will include IV fluids with potassium supplementation. -Repleted as necessary. #GERD- start famotidine IV Chronic Issues #HLD- continue home med atorvastatin Dispo- given patient's complexity of multiple issues and pending surgery will likely remain admitted for greater than 2 minutes. - -Nutrition support required through PEG tube feeds for 3 months or greater upon discharge VTE Prophylaxis: Sub-Q Enoxaparin VTE Mechanical Devices: Intermittant Pneumatic CD Resuscitation Status: CPR: Attempt Resuscitation Yoseph Huffman MD Jan 12, 2017 16:22
--- NOTE | 2017-01-12 17:24 | PCM.ANEP1 ---
Post Anesthesia PACU Phase 1 Assessment Vital Signs Vital Signs Date Time Temp Pulse Resp B/P Pulse Ox O2 Delivery O2 Flow Rate FiO2 01/12/17 17:15 72 13 137/82 96 Room Air 01/12/17 17:10 74 10 136/74 96 Room Air 01/12/17 17:05 37.7 77 8 99/79 97 Room Air 01/12/17 14:32 99 01/12/17 13:24 36.9 80 19 123/83 94 Room Air Anesthetic Administered: GA Level of Alertness: Awake, talking Pain: Yes (reported to nurse-5) Pain Scale Score: 6 Nausea or Vomiting: No CV Function & Hydration Stable: Yes Airway Device: Oxygen Delivery: Room Air Lungs: Clear to Auscultation Dermatome Level: Full Sensation PACU Phase 2 Assessment Complications: No Patient Instructions Provided: N/A Joshua Stevens MD Jan 12, 2017 17:24
--- NOTE | 2017-01-12 18:16 | NUR ---
POSTOP Pt returned from PACU at 1752; A&Ox3 - groggy, KOCH - gen weakness, Right PICC patent - IV infusing; ACCOUNT DEVELOPMENT ASSOCIATE reconnected - pt pushed button and requiring bolus; CPOx in place; VSS; Nausea - wretching - received Ativan and Zofran; Pain and Nausea under control post doses. SCDs on. PEG tube clamped - dressing at insertion site of gauze CDI, Bandaid at umbilicus CDI. present in room. Call light and ACCOUNT DEVELOPMENT ASSOCIATE button in reach.
[2017-01-12] MEDS ORDERED: 0.9% Sodium Chloride 100 ML ONE (21:16)
[2017-01-12] MEDS: Filgrastim 480 mCg/1.6 mL Inj SUBQ SCH (21:20)
--- NOTE | 2017-01-12 21:38 | PCM.SURGPO ---
Immediate Operative Note Date of Surgery: Jan 12, 2017 Pre Operative Diagnosis Dysphagia and Malnutrition Post Operative Diagnosis Dysphagia and Malnutrition Procedure Laparoscopic Gastrostomy Surgeon and Reducing System Operator Surgeon: Tino Holland MD Assistants: Ameya Diamond PAC and Marshall Pierre PAC Findings 18 Fr G tube. Working well at the end of the case Complications There were no periprocedural complications identified. Surgical Specimen Removed: No Specimen sent to Pathology: No Anesthetic Administered: GA Grafts, Implants: Implants-See Implant Record Output, Estimated Blood Loss: 0 Blood Admin during surgery: No Attending Statement Fisher Trot Line listed was medically necessary for the successful completion of the case Tino Holland MD Jan 12, 2017 21:37
--- NOTE | 2017-01-12 22:37 | OP ---
[address] [address] OPERATIVE REPORT PATIENT: DYLON CEDILLO : 1960 MR#: [id number] ADMIT: 01/10/2017 JOB ID: [id number] DATE OF SURGERY: 01/12/2017 SURGEON: Tino Holland MD PRINCIPAL JAVA SOFTWARE ENGINEER: Ameya Diamond PA-C and Marshall Pierre PA-C. PREOPERATIVE DIAGNOSIS(ES): Malnutrition secondary to dysphagia. POSTOPERATIVE DIAGNOSIS(ES): Malnutrition secondary to dysphagia. PROCEDURE PERFORMED: Laparoscopic gastrostomy. INDICATIONS: The patient is a 56-year-old gentleman who discovered a lump in his left neck in August 2016 which eventually led to the diagnosis of T2 N2b squamous cell carcinoma of the base of the tongue. He has been undergoing treatment with cisplatin and radiation. I saw him on December 20, 2016 to discuss gastrostomy and options. At that time, he was still yet to undergo one more cycle of chemoradiation, and the patient felt he was able to keep on his weight and maybe actually put on a few pounds with protein shakes and liquid diet. Since then, he finished the last cycle of chemoradiation, and he has significantly deteriorated in his nutritional intake with incessant vomiting and inability to keep even liquids down. He had lost over 20 pounds when he presented to the emergency department on January 10, 2017, and after discussing the risks, benefits, and alternatives, he is here today for laparoscopic gastrostomy. PROCEDURE DETAILS: He was placed in supine position and underwent smooth induction of general anesthesia. Abdomen was prepped and draped in the usual sterile fashion. Surgical time-out was undertaken using safety checklist, and all were in agreement. I began by making a supraumbilical incision to enter the abdomen using a combination of Marilyn technique and Optiview trocars. After obtaining pneumoperitoneum, I made another incision in the left upper quadrant in the proposed gastrostomy site and placed Vicryl sutures in all four quadrants through the fascia in preparation to Sly the stomach. At that point, I grabbed the stomach with a laparoscopic Dante clamp and brought the stomach to the abdominal wall fascia and evacuated the pneumoperitoneum. I then placed two traction sutures on the stomach and placed a pursestring. After that, I made a gastrotomy with electrocautery and was able to advance the 18-Macedonian gastrostomy tube through this gastrotomy into the lumen and inflated the balloon to secure it in place. After that, I tied the pursestring suture down and tied down all the Sly sutures and checked the gastrotomy to be in good position by infusing saline through it which flowed into the stomach without any evidence of intraperitoneal leakage. At that time, I evacuated the pneumoperitoneum, closed the umbilical site port fascia with [id number] 0-Vicryl suture and reapproximated the subcutaneous tissue with 3-0 Vicryl and reapproximated the skin with 4-0 Monocryl. We placed Steri-Strips and Band-Aid for the supraumbilical port site and placed a drain sponge around the G-tube and secured the G-tube with tape. He tolerated the procedure well and was recovered from anesthesia and was taken to the recovery room in stable condition.
[2017-01-13] VITALS (13 sets, daily range): BP systolic 119–153; BP diastolic 81–104; PULSE 91–107; RESP 14–20; O2SAT 92–98
[2017-01-13] MEDS: HYDROmorphone PCA 0.2 mg/mL 30 mL Inj IV PRN ×7 (00:37→20:21)
[2017-01-13] MEDS: D5 0.45% NaCl + KCl 20 mEq/L 1,000 ML IV SCH (04:26)
[2017-01-13 04:47] LABS: EOSINOPHILS % (AUTO) 0 % (0-5); Mean Corpuscular Hemoglobin 29.4 pg (27.0-35.0); Platelet Count 262 bil/L (150-400)
[2017-01-13 05:07] LABS: Magnesium 1.8 mg/dL (1.6-2.6); Phosphorus 2.7 mg/dL (2.5-4.9)
[2017-01-13 05:10] LABS: NEUTROPHILS % (AUTO) 62 % (40-74)
[2017-01-13 05:11] LABS: BASOPHILS % (AUTO) 0 % (0-3); MONOCYTES % (AUTO) 9 % (4-12)
--- NOTE | 2017-01-13 07:38 | NUR ---
Pain Pt c/o pain 10/10 at start of shift and requested bolus dose. Off going nurse had given 1 bolus dose prior 1hr before. Anna WELLS and rec'd order for 1mg continuous dose of dilaudid ENGLISH AS A SECOND LANGUAGE INSTRUCTOR with opioid tolerant parameters. Pt pain decreased to 3/10 during the night and maintained. Pt was awake and alert most of night and when sleeping was very easy to rouse. PEG tube clamped, dressing CDI. Incision dressing to abdomen CDI. Call light in reach, care continues
[2017-01-13] MEDS: Famotidine Inj 20 MG in IV Premix 1 EACH IV SCH ×2 (07:39→21:37)
[2017-01-13] MEDS: Fluconazole Inj 200 MG in IV Premix 1 EACH IV SCH (07:39)
[2017-01-13] MEDS ORDERED: Magnesium Sulfate 50% Inj 1 GM in Dextrose 5% 50 ML IV ONE ×2 (08:00→08:55)
[2017-01-13] MEDS: 0.9% Sodium Chloride 1,000 ML IV SCH ×2 (09:04→20:14)
--- NOTE | 2017-01-13 09:54 | PCM.PNSURG ---
Subjective Date of Service: Jan 13, 2017 Visit Information: Abdominal Pain s/p Diagnostic Laparoscopy 01/12/2017 Post-Op Day # 1 Date of Admission: Jan 10, 2017 at 15:43 Hospital Day # 4 Subjective: Feels much better, hungry Objective Vital Sign- Last 8 Hours Date Time Temp Pulse Resp B/P Pulse Ox O2 Delivery O2 Flow Rate FiO2 01/13/17 07:36 16 01/13/17 07:19 92 01/13/17 05:32 106 01/13/17 04:45 37.1 91 20 137/88 96 Room Air 01/13/17 04:13 14 95 Intake and Output- Last 8 Hour 01/13/17 Cumulative From/Thru 07:00 01/10/17 12:17 - 01/12/17 23:14 Intake Total 71324 ml Output Total 6875 ml Balance 5874 ml Intake Oral 0 ml IV Total 17940 ml Output Urine Total 6875 ml Estimated Blood Loss 0 ml # Voids 3 # Bowel Movements 0 Abdomen: Soft, Other (dressings dry) Result Diagram: 01/13/17 0430 01/13/17 0430 Assessment & Plan Impression Abd pain of unclear etiology - improving. Doing well Problems: Plan Advance diet, Rx per Medicine/ GI teams D/W Dr. Rhoades Please Call with any questions Tino Holland MD Jan 13, 2017 09:54
--- NOTE | 2017-01-13 10:36 | PCM.PNSURG ---
Subjective Date of Service: Jan 13, 2017 Visit Information: Dysphagia and malnutrition Laparoscopic gastrostomy 01/12/2017 Post-Op Day # 1 Date of Admission: Jan 10, 2017 at 15:43 Hospital Day # 4 Subjective: Pain well controlled. No nausea or vomiting Objective Vital Sign- Last 8 Hours Date Time Temp Pulse Resp B/P Pulse Ox O2 Delivery O2 Flow Rate FiO2 01/13/17 07:36 16 01/13/17 07:19 92 01/13/17 05:32 106 01/13/17 04:45 37.1 91 20 137/88 96 Room Air 01/13/17 04:13 14 95 Intake and Output- Last 8 Hour 01/13/17 Cumulative From/Thru 07:00 01/10/17 12:17 - 01/12/17 23:14 Intake Total 18331 ml Output Total 6875 ml Balance 5874 ml Intake Oral 0 ml IV Total 18815 ml Output Urine Total 6875 ml Estimated Blood Loss 0 ml # Voids 3 # Bowel Movements 0 Abdomen: Soft, Other (dressings dry) Result Diagram: 01/13/17 0430 01/13/17 0430 Assessment & Plan Impression Doing well Problems: Plan Okay to slowly start using the G-tube. Avoid bolus feeding until patient's nausea better. Tube care teaching Internal Review And Audit Compliance Counseling Discharge planning Tino Holland MD Jan 13, 2017 10:36
[2017-01-13] MEDS: Ondansetron 2 mg/mL 2 mL Inj IVPUSH PRN (12:37)
--- NOTE | 2017-01-13 12:49 | NUR ---
Transfer of Care Report and transfer of care of 1028 to Anisa Rodriguez RN at ~1200. meet and greet with RN taking over and with pt and . Pt with IV infusing and HUMAN RESOURCES SUPERVISOR infusing through PICC. Pt stating ready for shower, HVAC INSTRUCTOR present post meeting with supplies for shower. Care continues.
--- NOTE | 2017-01-13 14:06 | NUR ---
HTN / Dietary 153/106 on last Vitals that were rechecked. MD paged Tube feeding to start but order from dietary needs signs by appropriate MD. MD paged Care continues
[2017-01-13] MEDS ORDERED: HYDROmorphone 1 mg/mL 2 mL Solution PO PRN (14:15)
--- NOTE | 2017-01-13 14:48 | NUR ---
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 Reynolds. Patient has lost almost 20 pounds since November 24. Has refused a PEG tube on multiple occasions. Patient reports odynophagia has been unable to maintain by mouth intake and therefore has been going to oncology clinic for daily infusions. Pt now s/p PEG tube placement, starting on Jevity 1.5; to start and hold at 5ml per MD. PMHx:Squamous carcinoma of the base of the tongue with two necrotic left neck nodes, stage TIMOTHY, odynophagia, portal vein thrombosis with multiple superficial thromboses on chronic anticoagulation with Coumadin, dyslipidemia, malnutrition, GERD. DIET:NPO. NUTRITION SUPPORT: Jevity 1.5 @ 5ml/hr. LABS: Reviewed. Na 130, Glu 174, Ca 8.4 MEDICATIONS: Reviewed. NUTRITION FOCUSED PHYSICAL ASSESSMENT: GI symptoms / stool: No stool reported. Tru: 16. Skin Integrity: No issues reported. ANTHROPOMETRICS: Current Wt: 75.6 kgBMI: 24.0 kg/m2. Weight loss: 23.2 kg x 3 months (23.48%), 10.1 kg x 1 month (11.79%) = severe malnutrition. IBW: 72.73% (104% IBW) ESTIMATED NEEDS (SEVERE MALNUTRITION, STAGE TIMOTHY H&N CANCER): Calories: 2268 - 2646 kcal (30 - 35 kcal / kg BW) Protein: 113 - 151 g protein (1.5 - 2.0 g / kg BW) Fluid: Approx. 2646 mL fluid (35 mL / kg BW) NUTRITION DIAGNOSIS: 1)Inadequate oral intake related to altered GI function, as evidenced by severe malnutrition--PERSISTS. To start on tube feeding today. INTERVENTION: 1) Tube feeding orders placed in chart per MD recommendation of Jevity 1.5 @ 5ml/hr with H20 flush of 10ml q 4 hrs (while pt continues on IV fluids). 2) Once tube feeding tolerance established/cleared per MD-- recommend advancing 5 ml every 4 hr. to goal rate 70 mL/hr x 23 hr. Once enteral feeding at goal rate, recommend transition to nocturnal bolus feedings: advance 5 ml every 4 hr. to goal rate 107 mL x 15 hr. Enteral feeding at goal will provide 2415 kcal, 103 g protein, sufficient to meet 100% kcal / approx. 82% protein. 2) Recommend supplement enteral feeding with approx. 25 - 35 g protein to better meet protein needs. MONITOR/EVALUATE: Tube feeding initiation/tolerance, PO intake, labs, GI/nutrition status. Follow up per high nutrition risk guidelines. In the event IV fluids are not ordered, the patient will require 35 mL H2O every hour flush dose.
--- NOTE | 2017-01-13 16:31 | PCM.PNMED ---
Subjective Date of Service Jan 13, 2017 Subjective Patient had no overnight events. PEG placed yesterday. Pain is well- controlled with FREIGHT RATE SPECIALIST. Exam Vital Signs Vital Sign - Last Date Time Temp Pulse Resp B/P Pulse Ox O2 Delivery O2 Flow Rate FiO2 01/13/17 14:57 144/95 01/13/17 13:34 36.4 107 18 95 Room Air Intake and Output 01/12/17 01/12/17 01/13/17 Cumulative From/Thru 15:00 23:00 07:00 01/10/17 12:17 - 01/12/17 23:14 Intake Total 2641 ml 200 ml 18553 ml Output Total 1850 ml 700 ml 6875 ml Balance 791 ml -500 ml 5874 ml Intake Oral 0 ml 0 ml 0 ml IV Total 2641 ml 200 ml 11189 ml Output Urine Total 1850 ml 700 ml 6875 ml Estimated Blood Loss 0 ml 0 ml # Voids 3 3 # Bowel Movements 0 0 Exam Gen: NAD, AOx3. HEENT: NCAT, PERRLA, EOMI, MMM, sclera anicteric. + Oral thrush evident- improved. Neck: Soft, supple, symmetrical, palpable left anterior cervical node, nontender. Resp: CTAB, no R/R/W. CV: RRR, nl S1/S2, no M/R/G, Abd: Soft, (+) BS, no guarding/rebound/organomegaly. Peg Site- C/D/I Ext: +PP, -edema Skin: warm/dry/intact Neuro/Psych: No focal deficits, CN II-XII grossly intact. AAOx3, cooperative , appropriate mood/affect. 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 #intractable nausea- present on admission, active. -Improving with IV Zofran, and IV Ativan. patient still complained of some nausea. Patient is receiving IV fluids and electrolyte repletion as necessary. -We will will recheck BMP including magnesium and phosphorus this afternoon -Patient going for PEG tube today. 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 Completed treatment with combined modality therapy with cisplatin last given 12/22/2016 and radiation treatment last given December 30. His Oncologist, Dr. Randall Reynolds, has discussed getting PEG and patient recently agreed secondary to dysphagia. - Surgery consulted, Dr. Tamez is following and is planning on laparoscopic gastrostomy tube to be placed January 12. - He is currently off Coumadin with INR 1.16 on admission. We will continue to hold Coumadin. Her bridging with Lovenox with last dose to be given tonight at 9:30 PM. - We will keep nothing by mouth. - Nausea continue antiemetics. - Continue with IV fluids D5 half-normal K - Dilaudid FREIGHT RATE SPECIALIST and 1 mg every hour IV prn. - S/P PEG tube. can use today. Will start Tube feeds. #Neutropenia, present on admit, activ- WBC 2.7 on admit, now 1.9 likely secondary to chemotherapy. Initial ANC of 918->602 - If febrile we will culture and would then consider antibiotics. - Neutropenic precautions. -Per oncology will start Neupogen 480 mg daily for 3 days #Malnutrition- present on admit, active. 2/2 to 2 dysphagia and odynophagia. Patient has loss about 20-40 pounds over the last 2 months. . -Continue with IV fluids D5 half-normal K 20 mEq. -Plan for PEG tube as above. -Afterward Nutrition support required through PEG tube feeds for 3 months or greater upon discharge #history of portal vein thrombosis and and multiple superficial thromboses- POA , active. on chronic anticoagulation with Coumadin which was held due to INR greater than 10. Currently INR is subtherapeutic at 1.16. We will continue to hold Coumadin pending surgery evaluation. No bridging per Oncology, will give single dose Lovenox for DVT ppx today in case Surgery Wed.- - Hold anticoagulation for at least 24 hours postop. - We will resume Lovenox 721 and bridge to Coumadin as outpatient. #Electrolyte deficiencies, present on admit, active. -Hypomagnesemia-severe, presentation on admission. Mg-0.8 initially. He received 4 g of mag sulfate on admit. -We will give another 4 g of mag sulfate today and recheck labs at 4 PM -Hypokalemia- replete with goal of potassium greater than 4. Will include IV fluids with potassium supplementation. -Repleted as necessary. #GERD- start famotidine IV Chronic Issues #HLD- continue home med atorvastatin Dispo- given patient's complexity of multiple issues and pending surgery will likely remain admitted for greater than 2 minutes. - -Nutrition support required through PEG tube feeds for 3 months or greater upon discharge Pain Evaluation: Adequate Pain Control VTE Prophylaxis: Other VTE Mechanical Devices: Intermittant Pneumatic CD Resuscitation Status: CPR: Attempt Resuscitation Yoseph Huffman MD Jan 13, 2017 16:31
--- NOTE | 2017-01-13 17:30 | NUR ---
PEG / Feeding started PEG tube feeding started. Pt and family educated regarding how to use PEG, flushing, and hooking up tube feeding. Pt seems to have increased anxiety. Answered questions for pt as needed. Started tube feeding according to orders at 5ml/hr with 10mll flush every 4 hrs. Goal rate of 5ml/hr. Pt tolerating well at this time.
[2017-01-13] MEDS: Filgrastim 480 mCg/1.6 mL Inj SUBQ SCH (21:37)
[2017-01-14] MEDS: HYDROmorphone PCA 0.2 mg/mL 30 mL Inj IV PRN ×2 (00:16→04:56)
[2017-01-14 00:40] VITALS: RESP 18; O2SAT 97
[2017-01-14] MEDS: 0.9% Sodium Chloride 1,000 ML IV SCH ×2 (03:31→08:14)
[2017-01-14 04:45] VITALS: RESP 18; O2SAT 97
[2017-01-14 04:48] LABS: Mean Corpuscular Hemoglobin 28.9 pg (27.0-35.0); Mean Corpuscular Volume 86.6 fL (81-100); Platelet Count 178 bil/L (150-400)
[2017-01-14 05:09] LABS: Phosphorus 3.4 mg/dL (2.5-4.9)
[2017-01-14 05:20] LABS: Magnesium 1.4 mg/dL (1.6-2.6)
--- NOTE | 2017-01-14 05:30 | NUR ---
GI; pt appeared to sleep well during the night. Tube feeding at 5cc/hr with flush of 10cc q 4hrs. Pt states can feel tube feeding in stomach but no nausea.
[2017-01-14 05:31] LABS: BASOPHILS % (AUTO) 0 % (0-3); EOSINOPHILS % (AUTO) 0 % (0-5); MONOCYTES % (AUTO) 9 % (4-12); NEUTROPHILS % (AUTO) 68 % (40-74)
[2017-01-14 05:41] VITALS: BP 129/86; PULSE 89; RESP 16; O2SAT 98
[2017-01-14] MEDS ORDERED: Magnesium Sulf 2 Gm/50mL Water 2 GM in IV Premix 1 EACH IV ONE (07:30)
[2017-01-14] MEDS ORDERED: HYDROmorphone PCA 0.2 mg/mL 30 mL Inj IV PRN (07:40)
[2017-01-14] MEDS: Fluconazole Inj 200 MG in IV Premix 1 EACH IV SCH (09:33)
[2017-01-14] MEDS ORDERED: HYDROmorphone 1 mg/mL 2 mL Solution PO PRN (10:15)
[2017-01-14] MEDS: Famotidine Inj 20 MG in IV Premix 1 EACH IV SCH (10:46)
[2017-01-14 11:15] VITALS: RESP 20
--- NOTE | 2017-01-14 11:59 | PCM.PNMED ---
Subjective Date of Service Jan 14, 2017 Subjective Patient tolerated tube feeds well overnight. Patient says abdominal pain and nausea well controlled. Patient says he is eager to go home today. Exam Vital Signs Vital Sign - Last Date Time Temp Pulse Resp B/P Pulse Ox O2 Delivery O2 Flow Rate FiO2 01/14/17 11:15 20 01/14/17 05:41 36.8 89 129/86 98 Room Air Intake and Output 01/13/17 01/13/17 01/14/17 Cumulative From/Thru 15:00 23:00 07:00 01/10/17 12:17 - 01/14/17 06:32 Intake Total 1449 ml 1140 ml 1024 ml 45350 ml Output Total 2100 ml 880 ml 1000 ml 19980 ml Balance -651 ml 260 ml 24 ml 5507 ml Intake Oral 0 ml 0 ml 100 ml 100 ml IV Total 1449 ml 1140 ml 924 ml 43116 ml Output Urine Total 2100 ml 880 ml 1000 ml 44584 ml Estimated Blood Loss 0 ml # Voids 6 9 # Bowel Movements 0 0 0 Exam Gen: NAD, AOx3. HEENT: NCAT, PERRLA, EOMI, MMM, sclera anicteric. + Oral thrush - improved. Neck: Soft, supple, symmetrical, palpable left anterior cervical node, nontender. Resp: CTAB, no R/R/W. CV: RRR, nl S1/S2, no M/R/G, Abd: Soft, (+) BS, no guarding/rebound/organomegaly. Peg Site- C/D/I Ext: +PP, -edema Skin: warm/dry/intact Neuro/Psych: No focal deficits, CN II-XII grossly intact. AAOx3, cooperative , appropriate mood/affect. 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 #intractable nausea- present on admission, active. -Improving with IV Zofran, and IV Ativan. patient still complained of some nausea. Patient is receiving IV fluids and electrolyte repletion as necessary. -We will will recheck BMP including magnesium and phosphorus this afternoon - We will discharge with prescription for Zofran. 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 Completed treatment with combined modality therapy with cisplatin last given 12/22/2016 and radiation treatment last given December 30. His Oncologist, Dr. Randall Reynolds, has discussed getting PEG and patient recently agreed secondary to dysphagia. - Surgery consulted, Dr. Tamez is following and is planning on laparoscopic gastrostomy tube to be placed January 12. - He is currently off Coumadin with INR 1.16 on admission. We will continue to hold Coumadin. Her bridging with Lovenox with last dose to be given tonight at 9:30 PM. - Nausea continue antiemetics. - Continue with IV fluids D5 half-normal K - Dilaudid DIRECTOR OF DIAGNOSTIC IMAGING, transitioned to Dilaudid soln per PEG. - S/P PEG tube. Tolerated initial slow tube feeds. Should precede slowly per dietitian to avoid refeeding syndrome. - Dietitian following we will follow-up recommendations. - Upon discharge has arranged home health for tube feeds. #Neutropenia, present on admit, activ- WBC 2.7 on admit, now 1.9 likely secondary to chemotherapy. Initial ANC of 918->602 - If febrile we will culture and would then consider antibiotics. - Neutropenic precautions. -Per oncology will start Neupogen 480 mg daily for 3 days, 01/14 last day. #Malnutrition- present on admit, active. 2/2 to 2 dysphagia and odynophagia. Patient has loss about 20-40 pounds over the last 2 months. . -Continue with IV fluids D5 half-normal K 20 mEq. -Plan for PEG tube as above. -Afterward Nutrition support required through PEG tube feeds for 3 months or greater upon discharge #history of portal vein thrombosis and and multiple superficial thromboses- POA , active. on chronic anticoagulation with Coumadin which was held due to INR greater than 10. Currently INR is subtherapeutic at 1.16. We will continue to hold Coumadin pending surgery evaluation. No bridging per Oncology, will give single dose Lovenox for DVT ppx today in case Surgery Wed.- - Held anticoagulation for at least 24 hours postop. -Continue Lovenox which was started 01/13 and bridge to Coumadin. Get INR checked at oncology Clinic this week. Goal INR 2-3. #Electrolyte deficiencies, present on admit, active. -Hypomagnesemia-severe, presentation on admission. Mg-0.8 initially. He received 4 g of mag sulfate on admit. -We will give another 4 g of mag sulfate today and recheck labs at 4 PM -Hypokalemia- replete with goal of potassium greater than 4. Will include IV fluids with potassium supplementation. -Repleted as necessary. #GERD- givenfamotidine IV Chronic Issues #HLD- continue home med atorvastatin Dispo-patient will be discharged to home. -Continue Lovenox which was started 01/13 and bridge to Coumadin. Get INR checked at oncology Clinic this week. Goal INR 2-3. - For pain can take Dilaudid solution through PEG tube. - Zofran for nausea. -Start Bowel regimen including Miralax as needed. -Nutrition support required through PEG tube feeds for 3 months or greater upon discharge -Upon discharge has arranged home health for tube feeds. Pain Evaluation: Adequate Pain Control VTE Prophylaxis: Other VTE Mechanical Devices: Intermittant Pneumatic CD Resuscitation Status: CPR: Attempt Resuscitation Yoseph Huffman MD Jan 14, 2017 11:59
[2017-01-14 12:11] VITALS: BP 131/87; PULSE 88; RESP 18; O2SAT 97
--- NOTE | 2017-01-14 12:24 | PCM.DIMED ---
Discharge Instructions Date of Service Jan 14, 2017 Dates of Hospitalization Jan 10, 2017 at 15:43 Discharge Diagnosis Discharge Diagnosis #intractable nausea- present on admission, active. 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 Completed treatment with combined modality #Neutropenia, present on admit, activ- WBC 2.7 on admit, now 1.9 likely secondary to chemotherapy. Initial ANC of 918->602 #Malnutrition- present on admit, active. . #history of portal vein thrombosis and and multiple superficial thromboses- POA , active. #Electrolyte deficiencies, present on admit, active. #GERD Medication Instructions Additional med instructions - Continue Lovenox which was started 01/13 and bridge to Coumadin. Get INR checked at oncology Clinic this week. Goal INR 2-3. - For pain can take Dilaudid solution through PEG tube. - Zofran for nausea. - Start Bowel regimen including Miralax as needed. Patient Instructions Patient Instructions - Nutrition support required through PEG tube feeds for 3 months or greater upon discharge - [facility] for tube feeds will arrive to your house today. . - Continue Lovenox which was started 01/13 and bridge to Coumadin. Get INR checked at oncology Clinic this week. Goal INR 2-3. Provider: Randall Reynolds MD Follow-up in: 1 week Yoseph Huffman MD Jan 14, 2017 12:24
[2017-01-14] MEDS ORDERED: HYDR1LIQ4 PO (12:27)
[2017-01-14] MEDS ORDERED: ONDA4SOL2 PO (12:27)
[2017-01-14] MEDS ORDERED: LOV80 SUBQ (12:27)
[2017-01-14] MEDS ORDERED: POLY17PO6 PO (12:27)
--- NOTE | 2017-01-14 12:30 | PCM.DC.MED ---
Discharge Summary Date of Service Jan 14, 2017 Dates of Hospitalization Date of Hospital Admission Jan 10, 2017 at 15:43 Date of Discharge: Jan 14, 2017 Providers: Admitting Physician: Marilou Bruno MD Primary Care Physician: Benjamín Davalos MD Attending Physician: Marilou Bruno MD Diagnosis at Time of Discharge Diagnosis at Time of Discharge #intractable nausea- present on admission, active. 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 Completed treatment with combined modality #Neutropenia, present on admit, activ- WBC 2.7 on admit, now 1.9 likely secondary to chemotherapy. Initial ANC of 918->602 #Malnutrition- present on admit, active. . #history of portal vein thrombosis and and multiple superficial thromboses- POA , active. #Electrolyte deficiencies, present on admit, active. #GERD Brief History 56-year-old male with history of hyperlipidemia, malnutrition, history of portal vein thrombosis on chronic anticoagulation with Coumadin, squamous cell carcinoma of the base of the tongue stage TIMOTHY. Outpatient oncologist is Dr. Randall Reynolds. Patient recently was treated with combined modality therapy with cisplatin last given 12/22/2016 and radiation treatment last given December 30. Since last treatment patient had significant nausea with vomiting. Patient has lost almost 20 pounds since November 24. Has refused a PEG tube on multiple occasions. Patient reports odynophagia has been unable to maintain by mouth intake therefore has been going to oncology clinic for daily infusions. no diarrhea or change in bowel habits. Denies chest pain shortness of breath. Recent labs- 01/09-The white count is 2.2 with 62.1 neutrophils, hemoglobin 12.4 , hematocrit 37.1, platelets 117. The BUN and creatinine are 10 and 0.88, potassium 3.3, albumin remains normal at 3.6. ALT, AST, alkaline phosphatase and bilirubin are normal. Hospital Course 56-year-old male with history of hyperlipidemia, malnutrition, history of portal vein thrombosis on chronic anticoagulation with Coumadin, 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 #intractable nausea- present on admission, active. -Improving with IV Zofran, and IV Ativan. patient still complained of some nausea. Patient is receiving IV fluids and electrolyte repletion as necessary. -We will will recheck BMP including magnesium and phosphorus this afternoon - We will discharge with prescription for Zofran. 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 Completed treatment with combined modality therapy with cisplatin last given 12/22/2016 and radiation treatment last given December 30. His Oncologist, Dr. Randall Reynolds, has discussed getting PEG and patient recently agreed secondary to dysphagia. - Surgery consulted, Dr. Tmaez is following and is planning on laparoscopic gastrostomy tube to be placed January 12. - He is currently off Coumadin with INR 1.16 on admission. We will continue to hold Coumadin. Her bridging with Lovenox with last dose to be given tonight at 9:30 PM. - Nausea continue antiemetics. - Continue with IV fluids D5 half-normal K - Dilaudid TRANSPORTATION PROGRAM DIRECTOR, transitioned to Dilaudid soln per PEG. - S/P PEG tube. Tolerated initial slow tube feeds. Should precede slowly per dietitian to avoid refeeding syndrome. - Dietitian following we will follow-up recommendations. - Upon discharge has arranged home health for tube feeds. #Neutropenia, present on admit, activ- WBC 2.7 on admit, now 1.9 likely secondary to chemotherapy. Initial ANC of 918->602 - If febrile we will culture and would then consider antibiotics. - Neutropenic precautions. -Per oncology will start Neupogen 480 mg daily for 3 days, 01/14 last day. #Malnutrition- present on admit, active. 2/2 to 2 dysphagia and odynophagia. Patient has loss about 20-40 pounds over the last 2 months. . -Continue with IV fluids D5 half-normal K 20 mEq. -Plan for PEG tube as above. -Afterward Nutrition support required through PEG tube feeds for 3 months or greater upon discharge #history of portal vein thrombosis and and multiple superficial thromboses- POA , active. on chronic anticoagulation with Coumadin which was held due to INR greater than 10. Currently INR is subtherapeutic at 1.16. We will continue to hold Coumadin pending surgery evaluation. No bridging per Oncology, will give single dose Lovenox for DVT ppx today in case Surgery Wed.- - Held anticoagulation for at least 24 hours postop. -Continue Lovenox which was started 01/13 and bridge to Coumadin. Get INR checked at oncology Clinic this week. Goal INR 2-3. #Electrolyte deficiencies, present on admit, active. -Hypomagnesemia-severe, presentation on admission. Mg-0.8 initially. He received 4 g of mag sulfate on admit. -We will give another 4 g of mag sulfate today and recheck labs at 4 PM -Hypokalemia- replete with goal of potassium greater than 4. Will include IV fluids with potassium supplementation. -Repleted as necessary. #GERD- givenfamotidine IV Chronic Issues #HLD- continue home med atorvastatin Dispo-patient will be discharged to home. -Continue Lovenox which was started 01/13 and bridge to Coumadin. Get INR checked at oncology Clinic this week. Goal INR 2-3. - For pain can take Dilaudid solution through PEG tube. - Zofran for nausea. -Start Bowel regimen including Miralax as needed. -Nutrition support required through PEG tube feeds for 3 months or greater upon discharge -Upon discharge has arranged home health for tube feeds. Exam Vital Signs (Last) Date Time Temp Pulse Resp B/P Pulse Ox O2 Delivery O2 Flow Rate FiO2 01/14/17 12:11 36.7 88 18 131/87 97 Room Air Test 01/10/17 12:37 01/11/17 15:47 01/14/17 04:30 Hold Amezcua Top Tube Received (Received) Prothrombin Time 11.5sec (8.1-12.5) Prothromb Time International Ratio 1.07ratio White Blood Count 12.4th/mm3 (3.8-10.1) Red Blood Count 4.02mil/mm3 (4.40-5.80) Hemoglobin 11.6g/dL (13.8-17.2) Hematocrit 34.8% (41.0-50.0) Mean Corpuscular Volume 86.6fL (81-100) Mean Corpuscular Hemoglobin 28.9pg (27.0-35.0) Mean Corpuscular Hemoglobin Concent 33.3% (32.0-37.0) Red Cell Distribution Width 13.7% (12.3-15.4) Platelet Count 178bil/L (150-400) Neutrophils (%) (Auto) 68% (40-74) Lymphocytes (%) (Auto) 7% (14-46) Monocytes (%) (Auto) 9% (4-12) Eosinophils (%) (Auto) 0% (0-5) Basophils (%) (Auto) 0% (0-3) Band Neutrophils % 16% (1-5) Sodium Level 135mEq/L (134-144) Potassium Level 4.1mEq/L (3.5-5.2) Chloride Level 97mEq/L (97-108) Carbon Dioxide Level 25mmol/L (18-29) Blood Urea Nitrogen 8mg/dL (6-24) Creatinine 0.82mg/dL (0.76-1.27) Estimat Glomerular Filtration Rate 104mL/min (>59) Glucose Level 84mg/dL (60-99) Calcium Level 8.3mg/dL (8.5-10.1) Phosphorus Level 3.4mg/dL (2.5-4.9) Magnesium Level 1.4mg/dL (1.6-2.6) Total Bilirubin 0.7mg/dL (0.0-1.2) Aspartate Amino Transf (AST/SGOT) 24U/L (0-50) Alanine Aminotransferase (ALT/SGPT) 16U/L (0-44) Alkaline Phosphatase 78U/L (25-150) Total Protein 4.8g/dL (6.4-8.4) Albumin 2.9g/dL (3.4-5.0) Discharge Medications Discharge Medications Enoxaparin (Lovenox) 80 Mg/0.8 Ml Syringe 80 MG SUBQ Q12 Prescribed by: MARILOU BRUNO MD Fluconazole (Fluconazole Liquid) 10 Mg/1 Ml Susp.recon 10 ML PO DAILY (Reported ) Ondansetron ODT (Ondansetron ODT) 4 Mg Tab.rapdis 4 MG PO 5-6X daily (Reported) Simvastatin (Simvastatin) 20 Mg Tablet 20 MG PO HS (Reported) Warfarin Sodium (Warfarin Sodium) 7.5 Mg Tablet 11.25 MG PO MONDAY (Reported) 11/22/16 As needed Hydromorphone (Hydromorphone) 1 Mg/1 Ml Liquid 6 MG PO Q4H PRN PRN For Pain Prescribed by: MARILOU BRUNO MD Lorazepam (Lorazepam) 0.5 Mg Tablet 0.5 MG PO TID PRN PRN For Anxiety (Reported ) Ondansetron Liquid (Zofran Liquid) 4 Mg/5 Ml Solution 4 MG PO Q4H PRN PRN For Nausea Prescribed by: MARILOU BRUNO MD Polyethylene Glycol 3350 (Miralax) 17 Gm Powd.pack 17 GM PO DAILY PRN PRN For Constipation Prescribed by: MARILOU BRUNO MD Additional med instructions - Continue Lovenox which was started 01/13 and bridge to Coumadin. Get INR checked at oncology Clinic this week. Goal INR 2-3. - For pain can take Dilaudid solution through PEG tube. - Zofran for nausea. - Start Bowel regimen including Miralax as needed. Followup Plan Disposition: Discharge to Home with Home Health Services with [facility] for Tube Feeds. They will also arrange to draw INR Monday at his home. Patient Instructions - Nutrition support required through PEG tube feeds for 3 months or greater upon discharge - [facility] for tube feeds will arrive to your house today. . - Continue Lovenox which was started 01/13 and bridge to Coumadin. Get INR checked at oncology Clinic this week. Goal INR 2-3. Provider: Randlal Reynolds MD Follow-up in: 1 week Marilou Bruno MD Jan 14, 2017 12:30
--- NOTE | 2017-01-14 12:43 | PCM.PNSURG ---
Subjective Date of Service: Jan 14, 2017 Date of Service: Jan 14, 2017 Visit Information: Reason for Visit Dehydration, Persistant Vomiting Surgery/Surgery Date Post-Op Day # 2 s/p g tube placement Date of Admission: Jan 10, 2017 at 15:43 Hospital Day # Subjective: pt reports feeling a little better. Tolerating very low rate feeding. No bm but denies n/v. Some abdominal pain circumferential to midline abdominal incision. Ambulating and showering. Postop General: No Shortness of Breath, No Chest Pain Gastrointestinal: No N/V, Passing Flatus Neurological: Weakness Postop Activity: Ambulating Independently (low level) Objective Objective pleasant male in nad. Afebrile. Appropriate vitals. Vital Sign- Last 8 Hours Date Time Temp Pulse Resp B/P Pulse Ox O2 Delivery O2 Flow Rate FiO2 01/14/17 12:11 36.7 88 18 131/87 97 Room Air 01/14/17 11:15 20 01/14/17 05:41 36.8 89 16 129/86 98 Room Air 01/14/17 04:45 18 97 Intake and Output- Last 8 Hour 01/14/17 Cumulative From/Thru 07:00 01/10/17 12:17 - 01/14/17 06:32 Intake Total 1024 ml 84021 ml Output Total 1000 ml 64294 ml Balance 24 ml 5507 ml Intake Oral 100 ml 100 ml IV Total 924 ml 44387 ml Output Urine Total 1000 ml 94565 ml Estimated Blood Loss 0 ml # Voids 9 # Bowel Movements 0 General: Alert, Oriented X3, Cooperative Neck: Supple Lungs: Clear to Auscultation Heart: Exam Unremarkable Abdomen: Appropriately tender (around midline incision. ), Normoactive bowel tones SURGICAL WOUND : Wound Location/Description midline incision tender to palpation. Wound General Appearence: Steri Strips, Well Approximated, No Erythema, No Discharge Dressing & Drainage Status: Dressing Removed, Serosanguineous Drainage ( scant and dry), No Odor Result Diagram: 01/14/1742901/14/17 043 Assessment & Plan Impression Satisfactory post op course s/p G tube placement. Passing flatus. Pain tolerable. Slow return of bowel function with low feeding rate. Problems: Plan May discharge to home health services from surgical standpoint. Suppository Feeding per nutrition VTE Prophylaxis: Other Resuscitation Status: CPR: Attempt Resuscitation Jude Romo PA-C Jan 14, 2017 12:43
--- NOTE | 2017-01-14 12:48 | NUR ---
NUTRITION DISCHARGE: ASSESS:56 YO male admitted with intractable nausea, vomiting, and dehydration, following his completion of chemoradiation for squamous cell carcinoma of the base of the tongue stage TIMOTHY, followed by Dr. Reynolds. Patient has lost almost 20 pounds since November 24. Has refused a PEG tube on multiple occasions. Patient reports odynophagia has been unable to maintain by mouth intake and therefore has been going to oncology clinic for daily infusions. Pt now s/p PEG tube placement 01/12. Enteral feeding initiated at 5 mL/hr yesterday by surgery, advanced this morning to 15 mL/hr. The patient has reported some abdominal distention; enteral feeding decreased to 10 mL/hr. He has not had a bowel movement in over a week as well. Plan for today is for discharge, per patient's strong request. I contacted the pre-authorized home infusion company, [employer], this morning, and they are able to deliver supplies and provide the PEG tube teaching piece today. The patient is at significant risk for refeeding syndrome, and he will need close laboratory follow-up, which I will discuss with oncology. For this reason, I am requesting that the enteral feeding rate remain at 10 mL/hr until a new set of labs can be drawn to determine refeeding risk early next week. I left a message for Case Management to contact [facility] for POC regarding labs. I also left a message for oncology to follow up early next week. PMHx:Squamous carcinoma of the base of the tongue with two necrotic left neck nodes, stage TIMOTHY, odynophagia, portal vein thrombosis with multiple superficial thromboses on chronic anticoagulation with Coumadin, dyslipidemia, malnutrition, GERD. DIET:NPO. NUTRITION SUPPORT: Jevity 1.5 @ 10 ml/hr. LABS: Reviewed. Ca 8.3, Mg 1.4, Alb 2.9. MEDICATIONS: Reviewed. NUTRITION FOCUSED PHYSICAL ASSESSMENT: GI symptoms / stool: No stool reported x 1 week plus. Tru: 16. Skin Integrity: No issues reported. ANTHROPOMETRICS: Current Wt: 75.6 kgBMI: 24.0 kg/m2. Weight loss: 23.2 kg x 3 months (23.48%), 10.1 kg x 1 month (11.79%) = severe malnutrition. IBW: 72.73% (104% IBW) ESTIMATED NEEDS (SEVERE MALNUTRITION, STAGE TIMOTHY H&N CANCER): Calories: 2268 - 2646 kcal (30 - 35 kcal / kg BW) Protein: 113 - 151 g protein (1.5 - 2.0 g / kg BW) Fluid: Approx. 2646 mL fluid (35 mL / kg BW) NUTRITION DIAGNOSIS: 1)Inadequate oral intake related to altered GI function, as evidenced by severe malnutrition - PERSISTS. INTERVENTION: 1) Enteral feeding rate to remain at 10 mL/hr until labs can be drawn early next week. Once refeeding risk resolved, recommend advancing 5 ml every 4 hr. to goal rate 70 mL/hr x 23 hr. Once enteral feeding at goal rate, recommend transition to nocturnal bolus feedings: advance 5 ml every 4 hr. to goal rate 107 mL x 15 hr. Enteral feeding at goal will provide 2415 kcal, 103 g protein, sufficient to meet 100% kcal / approx. 82% protein. 2) Recommend supplement enteral feeding with approx. 25 - 35 g protein to better meet protein needs. 3)Recommend patient slowly attempt oral feeding when appropriate, initiating with small amounts of pureed texture, until safety and tolerance established. MONITOR/EVALUATE: Enteral feeding tolerance / advance, PO intake, labs, GI/nutrition status. Follow up per high nutrition risk guidelines. In the event IV fluids are not ordered, the patient will require 35 mL H2O every hour flush dose.
--- NOTE | 2017-01-14 14:10 | NUR ---
Social Work- Discharge/Multidisciplinary Rounds Data: EMR reviewed. Pt discussed in rounds. Pt to discharge today. Pt will discharge home with [facility] to manage his PEG tube feedings and [facility] for post-PEG tube care. [facility] is going to meet pt today to go over teachings and deliver supplies. T/C to [facility] regarding pt's discharge. Jackeline confirms that the F2F is completed and sent over. faxed discharge plan and instructions to [facility] at [phone]. [facility] is agreeable to plan. Pt will have to obtain labs at Oncology and Oncology has been asked to follow up with pt on Monday. Pt to discharge home with [facility] for tube feeds and [facility] RN for post-PEG tube care. No additional needs identified. All updated and agreeable to plan. Assessment: Pt for whom tube feeds and HH services are medically necessary Plan: Pt to discharge home with [facility] for tube feeds and [facility] RN for post-PEG tube care. No additional needs identified. All updated and agreeable to plan. IVONNE Mathis
[2017-01-14] MEDS ORDERED: LORA2VIA3 IVPUSH (14:23)
[2017-01-14] MEDS ORDERED: LORA0.5T PO (14:32)
--- NOTE | 2017-01-14 16:27 | NUR ---
Discharge Patient discharged home with . Patient and given verbal and written instructions and encouraged to ask questions as needed. Patient and his agree to understanding discharge and denied any further questions when asked. Patient will continue on peg feedings per dietary recommendations with [facility] managing solutions and care . Hard copy of prescriptions given to who will fill at local pharmacy. Patient anxious but adamant wanted to try to go home today and was pleased he was able to. Instructions on meds reviewed and demonstrated ability to give hi lovenox injections.
== END 2017-01-14 15:35 | disposition home health service (06) | DRG 147 ==
LOC: SED 12:01 → OSC 15:43
PROVIDERS: ADMIT Internal Medicine; ATTEND Internal Medicine
PROC: 0DH64UZ Insertion of Feeding Device into Stomach, Percutaneous Endoscopic Approach (ICD-10-PCS; principal; 2017-01-12 13:30)
DX: C01 Malignant neoplasm of base of tongue (principal); E46 Unspecified protein-calorie malnutrition; R11.2 Nausea with vomiting, unspecified; D70.1 Agranulocytosis secondary to cancer chemotherapy; K21.9 Gastro-esophageal reflux disease without esophagitis; Z68.24 Body mass index [BMI] 24.0-24.9, adult; Z87.891 Personal history of nicotine dependence; E78.5 Hyperlipidemia, unspecified; E83.42 Hypomagnesemia; E87.6 Hypokalemia; E86.0 Dehydration; R13.10 Dysphagia, unspecified; T45.1X5A Adverse effect of antineoplastic and immunosuppressive drugs, initial encounter

== ENCOUNTER 2017-01-24 08:45 | Inpatient (IN) | payer OTHER ==
[2017-01-24] VITALS (7 sets, daily range): BP systolic 111–130; BP diastolic 76–82; PULSE 72–119; RESP 14–22; O2SAT 97–100
[~2017-01-24] VITALS: Ht 175.3 cm; Wt 73.0 kg
[~2017-01-24 08:45] MED LIST changes: -CEPH500T PO; +FLUC10SU2 PO; +HYDR1LIQ4 PO; -HYDR8TAB PO; +LORA0.5T PO; +LORA2VIA3 IVPUSH; +LOV80 SUBQ; -OMEP20TA86 PO; +ONDA4SOL2 PO; +ONDA4TAB12 PO; +POLY17PO6 PO; -WARF10TA4 PO; -triple swish PO
--- NOTE | 2017-01-24 09:02 | ED.REPORT ---
HPI-General Illness Date of Service Jan 24, 2017 ED Provider: Bryce Foreman DO Patient is a 56 year old male with a hx of cancer in is tongue and throat with radiation therapy and a recent G-tube placement who presents to the ED from the cancer center complaining of vomiting onset yesterday. Associated symptoms include hematemesis, sore throat, fatigue, and generalized weakness. He denies SOB, fever, cough, or any other symptoms. His G-tube was recently infected and he has been on antibiotics for it. He had an appointment with his PCP (Amalia) 5 days ago. Nursing Notes Stated Complaint: PEG ASSESSMENT Chief Complaint: General Complaint Nursing Notes Reviewed: Yes Allergies: Coded Allergies: No Known Allergies (Unverified , 01/10/17) Scheduled Enoxaparin (Lovenox) 80 Mg/0.8 Ml Syringe 80 MG SUBQ Q12 Fluconazole (Fluconazole Liquid) 10 Mg/1 Ml Susp.recon 10 ML PO DAILY Ondansetron ODT (Ondansetron ODT) 4 Mg Tab.rapdis 4 MG PO 5-6X daily Simvastatin (Simvastatin) 20 Mg Tablet 20 MG PO HS Warfarin Sodium (Warfarin Sodium) 7.5 Mg Tablet 11.25 MG PO Monday11/22/16 Scheduled PRN Hydromorphone (Hydromorphone) 1 Mg/1 Ml Liquid 6 MG PO Q4H PRN PRN For Pain Lorazepam (Lorazepam) 0.5 Mg Tablet 0.5 MG PO TID PRN PRN For Anxiety Lorazepam (Lorazepam Inj) 2 Mg/1 Ml Vial 0.5 MG IVPUSH Q4H PRN PRN For Anxiety or Agitation Lorazepam (Lorazepam) 0.5 Mg Tablet 0.5 MG PO TID PRN PRN For Anxiety Ondansetron Liquid (Zofran Liquid) 4 Mg/5 Ml Solution 4 MG PO Q4H PRN PRN For Nausea Polyethylene Glycol 3350 (Miralax) 17 Gm Powd.pack 17 GM PO DAILY PRN PRN For Constipation General Time Seen by MD: 09:01 Chief Complaint Vomiting Hx Obtained From: Patient, Spouse Arrived By: Wheelchair Sudden in Onset?: Yes Onset Occurred: Yesterday Symptom Duration: Since onset Recent Healthcare: Recent doctor visit Past Medical History Past Medical History Notes: Code status: Full code Past Medical History Throat and tongue cancer on radiation therapy Past Surgical History Hernia/Tonsils G-tube placement Smoking History Former Smoker Social History Lives in [place] Other Social History: Good social support, Ambulatory Status Independent Review of Systems Full Review of Systems Constitutional: Reports: Fatigue, Weakness - generalized, Denies: Fever Ears / Nose / Throat: Reports: Sore throat Respiratory: Denies: Non-productive cough, Shortness of breath GI: Reports: Hematemesis, Nausea, Vomiting Complete sys rev & neg: except as marked. Physical Exam Vital Signs Vital Signs Date Time Temp Pulse Resp B/P Pulse Ox O2 Delivery O2 Flow Rate FiO2 01/24/17 08:49 36.5 119 16 113/81 98 Initial VS: Reviewed, Vital signs abnormal Head / Eyes: Atraumatic, Normocephalic Neck: Full range of motion Respiratory: Breath sounds normal, Clear to auscultation, No respiratory distress Skin: Warm, Dry Neurologic: Alert, Oriented, Nonfocal Psychiatric: Mood/affect normal, Behavior normal, Normal thought content General/Constitutional: Awake, Alert Appearance / Presentation: Positive: Frail Thin Cardiovascular: Regular rhythm, Heart sounds NL Heart Rate / Rhythm: Positive: Tachycardia Abdomen: Atraumatic, Soft PEG tube in place, healing well Tenderness in LUQ Re-Eval/Medical Decision Time of Eval: 09:30 Re-Evaluation/Progress Note: Discussed plan for admission. Patient understands and agrees with plan. All questions addressed at this time. Consultation #1: Referral / Consult Name: Ameya Diamond PA-C Consulted With: Surgeon Call Returned at: 09:30 Clerical Secretary: Will see patient Note: Will see patient. Will consult. Consultation #2: Referral / Consult Name: Fredrick Blas MD Consulted With: Hospitalist Call Returned at: 10:23 Clerical Secretary: Will see patient, Agrees with eval, Agrees with plan, Accepts admit Note: Discussed pt's case. Accepts admit. Counseled Regarding: Diagnosis, Lab results, Need for admission Discharge & Departure Primary Impression: Acute kidney injury Disposition: ADMITTED TO HOSPITAL Discharge Condition All VS Reviewed: Yes Condition: Stable Referrals: Benjamín Davalos MD (PCP) Scribe Attestation Portions of this note were transcribed by Jaclyn Caldwell. I, Dr. Foreman personally performed the history, physical exam and medical decision-making; I reviewed and confirmed the accuracy of the information in the transcribed note. Signed by: Danny Morataya, 01/24/17 copies to: Benjamín Davalos MD, Timothy S DO Jan 24, 2017 09:02 JACLYN CALDWELL Jan 24, 2017 09:09
[2017-01-24] MEDS ORDERED: 0.9% Sodium Chloride 1,000 ML IV ONE (09:10)
[2017-01-24] MEDS: Ondansetron 2 mg/mL 2 mL Inj IVPUSH PRN ×5 (10:43→21:02)
[2017-01-24] MEDS: HYDROmorphone 1 mg/mL Inj IVPUSH PRN ×8 (10:43→21:04)
[2017-01-24] MEDS: Lactated Ringer's 1,000 ML IV SCH ×3 (10:54→23:12)
[2017-01-24] MEDS ORDERED: Polyethylene Glycol (PEG) 17 Gm Powder PO PRN (10:55)
[2017-01-24] MEDS ORDERED: Alum-Mag Hydrox-Simeth 30 mL Suspension PO PRN (10:55)
[2017-01-24 12:30] LABS: BASOPHILS % (AUTO) 0.3 % (0-3); EOSINOPHILS % (AUTO) 0.1 % (0-5); MONOCYTES % (AUTO) 7.6 % (4-12); Mean Corpuscular Hemoglobin 28.7 pg (27.0-35.0); Mean Corpuscular Volume 85.4 fL (81-100); NEUTROPHILS % (AUTO) 72.4 % (40-74); Platelet Count 243 bil/L (150-400)
[2017-01-24 13:19] LABS: Magnesium 1.7 mg/dL (1.6-2.6)
--- NOTE | 2017-01-24 13:48 | DRSVH ---
PROCEDURE: XR TUBE CHECK W CON INDICATIONS: with gastrograffin, no barium, eval G tube COMPARISON: [facility], CT, CT ABD PELVIS W CON, 01/20/2017, 14:31. FINDINGS: Analysis Engineer view the abdomen demonstrates gastrostomy tube. Gastrografin with total volume of 120 cc was instilled which demonstrates appropriate positioning of the gastrostomy tube and retention balloon. There is opacification of the stomach which appears norm al. There is mild delay in emptying of the stomach into the duodenum estimated at several minutes. P eristalsis in the duodenum shows back and forth movement of the contrast. Overtime the contrast does move forward. Otherwise the duodenal loop appears normal and anatomic with contrast extending into th e proximal jejunum. No extravasation of contrast media. The attending physician was personally prese nt in the room during the examination. IMPRESSION: Slight delay in emptying of contrast from the stomach through the duodenal loop otherwis e appropriate positioning of the gastrostomy tube and no definite gastric or duodenal intraluminal fi lling defects are seen. Dictated by: Jared ORTIZ Interpreted: Alvino Madrid MD on 01/24/2017 at 12:59 Approved by: Alvino Madrid M.D. on 01/24/2017 at 13:45
[2017-01-24] MEDS ORDERED: DOCU-41 PO (14:51)
[2017-01-24] MEDS ORDERED: LEVO500T79 PO (14:51)
[2017-01-24] MEDS: 0.9% Sodium Chloride 1,000 ML IV SCH ×2 (15:17→23:11)
--- NOTE | 2017-01-24 16:31 | PCM.HPMED ---
Subjective Date of Service Jan 24, 2017 Primary Provider: Admitting Physician: Fredrick Blas MD Primary Care Physician: Benjamín Davalos MD Attending Physician: Fredrick Blas MD Admit Status: From the Emergency Department, Admit to Red Team Chief Complaint: Nausea and vomiting/4 days. 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 He was started on tube feeds at 10ml/h and advanced 10 mL every day and eventually achieved goal of 70ml/h . He had pain and discharge at PEG tube placement site. He was given oral antibiotics by his PCP for possible PEG tube site infection. He was evaluated by surgeon outpatient and site reportedly does not seem to be infected and was advised to continue local wound care For the last 4 days he has been having nausea and repeated episodes of vomiting even if tube feeding rate was lowered and eventually stopped. He continued to have repeated episodes of vomiting. He had 2 episodes with vomiting of blood, small amount, at the end of vomiting episode. Vomiting has worsened in the last 2 days He was seen by PCP 2 days ago and advised to hold warfarin for now. He went to see his radiation oncologist today and was noted to be dehydrated and transferred to Ed for evaluation Denies fever. Denies cough. Denies abdominal distention. No bowel habit change last radiation 12/22, last chemotherapy 12/30 per patient ED course : Initial HR 119, BP 113/81, other vital signs was given. No leukocytosis. Labs unremarkable IV fluids given.PEG Gastrografin test Slight delay in emptying of contrast from the stomach through the duodenal loop otherwise appropriate positioning of the gastrostomy tube Admission requested for intractable nausea and vomiting Review of Systems: A comprehensive review of systems performed, pertinent positives and negatives included in history of present illness Allergies Coded Allergies: No Known Allergies (Unverified , 01/24/17) Home Medications Enoxaparin (Lovenox) 80 Mg/0.8 Ml Syringe 80 MG SUBQ Q12 discontinued 3 days ago Fluconazole (Fluconazole Liquid) 10 Mg/1 Ml Susp.recon 10 ML PO DAILY Ondansetron ODT (Ondansetron ODT) 4 Mg Tab.rapdis 4 MG PO 5-6X daily Simvastatin (Simvastatin) 20 Mg Tablet 20 MG PO HS Warfarin Sodium (Warfarin Sodium) 7.5 Mg Tablet 11.25 MG PO MONDAY , held 2 days ago 11/22/16 Scheduled PRN Hydromorphone (Hydromorphone) 1 Mg/1 Ml Liquid 6 MG PO Q4H PRN PRN For Pain Lorazepam (Lorazepam) 0.5 Mg Tablet 0.5 MG PO TID PRN PRN For Anxiety Lorazepam (Lorazepam Inj) 2 Mg/1 Ml Vial 0.5 MG IVPUSH Q4H PRN PRN For Anxiety or Agitation Lorazepam (Lorazepam) 0.5 Mg Tablet 0.5 MG PO TID PRN PRN For Anxiety Ondansetron Liquid (Zofran Liquid) 4 Mg/5 Ml Solution 4 MG PO Q4H PRN PRN For Nausea Polyethylene Glycol 3350 (Miralax) 17 Gm Powd.pack 17 GM PO DAILY PRN PRN For Constipation PMH squamous carcinoma of the base of the tongue with two necrotic left neck nodes, stage TIMOTHY, Odynophagia history of portal vein thrombosis and and multiple superficial thromboses on chronic anticoagulation with Coumadin hyperlipidemia, malnutrition, GERD Surgical History per chart Tonsillectomy. Sinus surgery. Hernia surgery. Colonoscopy approximately two years ago Family History three step-brothers with heart disease at age < 60 Social History Hx Alcohol Use: Yes (not currently, "i used to drink probably more than I should".) Hx Substance Use: No Hx Tobacco Use: Yes Smoking Status: Former Smoker Exam Vital Signs Vital Sign - Last Date Time Temp Pulse Resp B/P Pulse Ox O2 Delivery O2 Flow Rate FiO2 01/24/17 12:48 80 01/24/17 12:24 36.7 15 130/82 100 01/24/17 11:35 Room Air Exam Gen. patient is lying comfortably in hospital bed HEENT: Head is normocephalic atraumatic, Pupils equal and reactive, extraocular movements intact, Lungs clear to auscultation bilaterally Heart regular rate and rhythm without murmurs gallops or rubs Abdomen soft nontender without hepatosplenomegaly,PEG in place ,site has scanty yellowish discharge, no erythema or tenderness. Extremities pulses are present dorsalis pedis posterior tibialis and radial. tSkin is warm and dry there are no rashes, Psych alert and oriented to person place and time Neuro cranial nerves II through XII are grossly intact Lymph: There is no lymphadenopathy appreciated in the cervical supra infraclavicular regions : no maxwell Lab and Diagnostics Result Diagram: 01/24/17 1215 01/24/17 1215 X-Rays, CTs and MRIs PROCEDURE: XR TUBE CHECK W CON INDICATIONS: with gastrograffin, no barium, eval G tube COMPARISON: [facility], CT, CT ABD PELVIS W CON, 01/20/2017, 14:31. FINDINGS: Information Technology Director view the abdomen demonstrates gastrostomy tube. Gastrografin with total volume of 120 cc was instilled which demonstrates appropriate positioning of the gastrostomy tube and retention balloon. There is opacification of the stomach which appears normal. There is mild delay in emptying of the stomach into the duodenum estimated at several minutes. Peristalsis in the duodenum shows back and forth movement of the contrast. Overtime the contrast does move forward. Otherwise the duodenal loop appears normal and anatomic with contrast extending into the proximal jejunum. No extravasation of contrast media. The attending physician was personally present in the room during the examination. IMPRESSION: Slight delay in emptying of contrast from the stomach through the duodenal loop otherwise appropriate positioning of the gastrostomy tube and no definite gastric or duodenal intraluminal filling defects are seen. 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 # Intractable nausea and vomiting,acute,poa -Unclear etiology. Chemo and radiation completed more than 3 weeks ago -PEG tube Gastrografin shows delayed emptying but no obstruction -NS 100ml/h -npo -Zofran when necessary -No evidence of infection # Upper GI bleeding due to suspected Anjali-Mari -Patient had vomiting of blood at the end of vomiting episode -Hemoglobin stable -Protonix IV twice a day #squamous carcinoma of the base of the tongue with two necrotic left neck nodes , stage TIMOTHY- POA, active. Completed treatment with combined modality therapy with cisplatin last given 12/22/2016 and radiation treatment last given December 30. His Oncologist, Dr. Randall Reynolds, - S/P PEG tube. #Malnutrition- present on admit, active. 2/2 to 2 dysphagia and odynophagia. Patient has loss about 20-40 pounds over the last 2 months. . -PEG tube feeding when vomiting resolves #history of portal vein thrombosis and and multiple superficial thromboses- POA , active. on chronic anticoagulation with Coumadin which was held due to suspected Anjali-Mari - resume warfarin tonight and watch him closely Patient admitted under inpatient status with expected length of stay > 2 midnights for severity of present symptoms, complexities of treatment plan and risk for adverse events full code copies to: Benjamín Davalos MD; Randall Reynolds MD, Melaku MD Jan 24, 2017 16:31
[2017-01-24 17:48] LABS: INR 4.38 ratio
--- NOTE | 2017-01-24 17:59 | NUR ---
Shift Assessment Patient received from ED in the 1400 hour. Pain is well controlled with doses of 1mg Dilaudid. MD spoke to patient and family re: results of diagnostics of peg tube placement. Watching for now and hydrating. NPO with chips. VSS.
--- NOTE | 2017-01-24 19:11 | PCM.CONPHA ---
Subjective Date of Service: Jan 24, 2017 Nausea and vomiting/4 days. Vomiting of blood /2 episodes Objective Vital Signs Date Time Temp Pulse Resp B/P Pulse Ox O2 Delivery O2 Flow Rate FiO2 01/24/17 16:00 78 01/24/17 16:00 36.5 77 16 111/77 97 Room Air 01/24/17 12:48 80 01/24/17 12:24 36.7 86 15 130/82 100 01/24/17 11:35 87 14 115/76 97 Room Air 01/24/17 08:49 36.5 119 16 113/81 98 Weight (Kilograms): 73.000 Height (Feet): 5 Height (Inches): 9.00 Test 01/24/17 12:15 01/24/17 17:15 White Blood Count 7.0th/mm3 (3.8-10.1) Red Blood Count 3.90mil/mm3 (4.40-5.80) Hemoglobin 11.2g/dL (13.8-17.2) Hematocrit 33.3% (41.0-50.0) Mean Corpuscular Volume 85.4fL (81-100) Mean Corpuscular Hemoglobin 28.7pg (27.0-35.0) Mean Corpuscular Hemoglobin Concent 33.6% (32.0-37.0) Red Cell Distribution Width 13.6% (12.3-15.4) Platelet Count 243bil/L (150-400) Neutrophils (%) (Auto) 72.4% (40-74) Lymphocytes (%) (Auto) 18.0% (14-46) Monocytes (%) (Auto) 7.6% (4-12) Eosinophils (%) (Auto) 0.1% (0-5) Basophils (%) (Auto) 0.3% (0-3) Sodium Level 136mEq/L (134-144) Potassium Level 3.8mEq/L (3.5-5.2) Chloride Level 96mEq/L (97-108) Carbon Dioxide Level 25mmol/L (18-29) Blood Urea Nitrogen 20mg/dL (6-24) Creatinine 1.24mg/dL (0.76-1.27) Estimat Glomerular Filtration Rate 65mL/min (>59) Glucose Level 118mg/dL (60-99) Calcium Level 8.5mg/dL (8.5-10.1) Magnesium Level 1.7mg/dL (1.6-2.6) Total Bilirubin 0.5mg/dL (0.0-1.2) Aspartate Amino Transf (AST/SGOT) 46U/L (0-50) Alanine Aminotransferase (ALT/SGPT) 33U/L (0-44) Alkaline Phosphatase 71U/L (25-150) Total Protein 5.5g/dL (6.4-8.4) Albumin 3.2g/dL (3.4-5.0) Procalcitonin 0.17ng/mL (0.00-0.08) Prothrombin Time 48.3sec (8.1-12.5) Prothromb Time International Ratio 4.38ratio Assessment/Plan Assessment/Plan Warfarin management per pharmacy Indication: hx of portal vein thrombosis INR goal: 2-3 Home warfarin dose: 11.25 mg Monday, 7.5 mg on all other days of the week Pertinent info: - Patient had 2 episodes of vomiting blood. - H/H: 11.2/33.3 INR is supratherapeutic likely due to acute illness. Hold warfarin dose today. Serial INR's ordered x5. Pharmacy to continue to monitor and dose warfarin daily. Thank you, Maggy Cox Pharmacist Maggy Cox Jan 24, 2017 19:11
[2017-01-25] VITALS (7 sets, daily range): BP systolic 111–135; BP diastolic 71–87; PULSE 72–94; RESP 16–22; O2SAT 97–99
[2017-01-25] MEDS: HYDROmorphone 1 mg/mL Inj IVPUSH PRN ×4 (04:21→20:37)
[2017-01-25] MEDS: Ondansetron 2 mg/mL 2 mL Inj IVPUSH PRN ×4 (04:28→20:36)
[2017-01-25 05:23] LABS: BASOPHILS % (AUTO) 0.2 % (0-3); EOSINOPHILS % (AUTO) 0.9 % (0-5); MONOCYTES % (AUTO) 12.5 % (4-12); Mean Corpuscular Hemoglobin 28.9 pg (27.0-35.0); Mean Corpuscular Volume 87.6 fL (81-100); NEUTROPHILS % (AUTO) 51.5 % (40-74); Platelet Count 207 bil/L (150-400)
[2017-01-25 05:43] LABS: INR 4.01 ratio
[2017-01-25 05:59] LABS: Magnesium 1.7 mg/dL (1.6-2.6)
--- NOTE | 2017-01-25 06:06 | NUR ---
PAIN/NAUSEA/ANXIETY Patient continues to complain of pain to his throat, relieved with dilaudid. Patient awoke in an anxious state. He was nauseated and "disoriented" per his report. Patient appeared quite anxious and was given ativan and zofran to reduce symptoms. Patient is currently sleeping. Numerous dressing changes to peg tube.
[2017-01-25] MEDS: 0.9% Sodium Chloride 1,000 ML IV SCH ×3 (08:54→23:58)
[2017-01-25] MEDS: Lactated Ringer's 1,000 ML IV SCH ×3 (11:40→19:53)
[2017-01-25] MEDS: Pantoprazole 4 mg/mL 10 mL Inj IVPUSH SCH ×2 (11:40→17:43)
[2017-01-25] MEDS ORDERED: Sodium Chloride LOK Flush 10 mL Syringe IVFLUSH PRN ×2 (13:25)
--- NOTE | 2017-01-25 15:33 | PCM.PNMED ---
Subjective Date of Service Jan 25, 2017 Subjective Nausea and vomiting improving.had 2 episodes of watery diarrhea overnight Exam Vital Signs Vital Sign - Last Date Time Temp Pulse Resp B/P Pulse Ox O2 Delivery O2 Flow Rate FiO2 01/25/17 14:00 37.1 81 16 116/73 99 Room Air Intake and Output 01/24/17 01/24/17 01/25/17 Cumulative From/Thru 15:00 23:00 07:00 01/24/17 08:49 - 01/25/17 04:00 Intake Total 1000 ml 328 ml 998 ml 2326 ml Balance 1000 ml 328 ml 998 ml 2326 ml Intake IV Total 1000 ml 328 ml 998 ml 2326 ml # Voids 1 3 4 Exam Gen. patient is lying comfortably in hospital bed HEENT: Head is normocephalic atraumatic, Pupils equal and reactive, extraocular movements intact, Lungs clear to auscultation bilaterally Heart regular rate and rhythm without murmurs gallops or rubs Abdomen soft nontender without hepatosplenomegaly,PEG in place ,site has scanty yellowish discharge, no erythema or tenderness. Extremities pulses are present dorsalis pedis posterior tibialis and radial. tSkin is warm and dry there are no rashes, Psych alert and oriented to person place and time Neuro cranial nerves II through XII are grossly intact Lymph: There is no lymphadenopathy appreciated in the cervical supra infraclavicular regions : no maxwell IVs and Medications Medications Reviewed: Medications were reviewed in detail Lab and Diagnostics Result Diagram: 01/25/17 0415 01/25/17 0415 X-Rays, CTs and MRIs PROCEDURE: XR TUBE CHECK W CON INDICATIONS: with gastrograffin, no barium, eval G tube COMPARISON: [facility], CT, CT ABD PELVIS W CON, 01/20/2017, 14:31. FINDINGS: Patrol Man view the abdomen demonstrates gastrostomy tube. Gastrografin with total volume of 120 cc was instilled which demonstrates appropriate positioning of the gastrostomy tube and retention balloon. There is opacification of the stomach which appears normal. There is mild delay in emptying of the stomach into the duodenum estimated at several minutes. Peristalsis in the duodenum shows back and forth movement of the contrast. Overtime the contrast does move forward. Otherwise the duodenal loop appears normal and anatomic with contrast extending into the proximal jejunum. No extravasation of contrast media. The attending physician was personally present in the room during the examination. IMPRESSION: Slight delay in emptying of contrast from the stomach through the duodenal loop otherwise appropriate positioning of the gastrostomy tube and no definite gastric or duodenal intraluminal filling defects are seen. 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 # Intractable nausea and vomiting,acute,poa -Unclear etiology. Chemo and radiation completed more than3 weeks ago -PEG tube Gastrografin shows delayed emptying but no obstruction.discussed with surgery,will give atrial of Reglan 10mg achs -NS 100ml/h -npo -Zofran when necessary -No evidence of infection -trickle feeding later today # Upper GI bleeding due to suspected Anjali-Mari -Patient had vomiting of blood at the end of vomiting episode -Hemoglobin stable -Protonix IV twice a day -resume warfarin # squamous carcinoma of the base of the tongue with two necrotic left neck nodes, stage TIMOTHY- POA, active. Completed treatment with combined modality therapy with cisplatin last given 12/22/2016 and radiation treatment last given December 30. His Oncologist, Dr. Randall Reynolds, - S/P PEG tube. #Malnutrition- present on admit, active. 2/2 to 2 dysphagia and odynophagia. Patient has loss about 20-40 pounds over the last 2 months. . -PEG tube feeding when vomiting resolves #history of portal vein thrombosis and and multiple superficial thromboses- POA , active. on chronic anticoagulation with Coumadin which was held due to suspected Anjali-Mari - resumed warfarin Patient admitted under inpatient status with expected length of stay > 2 midnights for severity of present symptoms, complexities of treatment plan and risk for adverse events full code disposition: Possible discharge tomorrow [facility] and [facility] for formula supply Fredrick Blas MD Jan 25, 2017 15:33
--- NOTE | 2017-01-25 16:14 | NUR ---
Social Work-initial assessment: Data:See initial assessment. Pt is a 56 y/o male who was admitted on 01/24/17 for BAKARI per H&P. Pt's insurance is [employer] and PCP is Benjamín Hoang MD. EMR reviewed. SW met with pt and Modesta at bedside, SW role explained. Pt is alert and oriented x3. Pt and live in a single level home in [place] where pt remains independent with ADLS. Pt drives and does not use any DME. Pt is currently open with [facility] for peg tube dressing changes and [facility] for Peg tube formula, SW to await MD orders to contact companies. Pt has no SNF history. 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 SW discussed DPOA/ advanced directive, pt and confirm they are currently working on completing this, SW encouraged a copy to be be brought in once done. pt's will provide transport home. helps manage pt's PEG Tube at home. SW provided them with discharge planning checklist and encouraged them to call with any questions, phone number provided on white board in room. SW will continue to follow. Assessment:pt who has outpt services through HH and infusion. Plan:Pt to discharge home once medically stable via POV. SW to await MD orders to contact outpt providers [facility] and [facility]. SW will continue to follow. IVONNE Alegria Addendum: 01/25/17 at 1619 by BRAULIO WALLS SS Amended: Links added.
--- NOTE | 2017-01-25 17:16 | NUR ---
NUTRITION ASSESSMENT: ASSESS: 56 YO male admitted with intractable nausea and vomiting x 4 days. Per notes, nausea/vomiting has improved, but pt with diarrhea x 2 over night. Pt had PEG placed on 01/14. PEG tube Gastrografin study showed no obstruction but delayed gastric emptying per notes. PMHx: Squamous carcinoma of the base of the tongue with two necrotic left neck nodes, stage TIMOTHY, odynophagia, portal vein thrombosis with multiple superficial thromboses on chronic anticoagulation with Coumadin, dyslipidemia, malnutrition, GERD. DIET: NPO. HOME TF REGIMEN: Unknown at this time. LABS: Reviewed. Ca 8.4, AST 53, ALB 2.8. MEDICATIONS: Reviewed. GI symptoms / stool: BM x 2 (01/25) Skin Integrity: No issues reported. ANTHROPOMETRICS: Current Wt: 73 kg. Wt 01/10/2017 just prior to PEG tube placement 75.6 kg Weight loss (per last admission documentation): 23.2 kg x 3 months (23.48%), 10.1 kg x 1 month (11.79%) ESTIMATED NEEDS (SEVERE MALNUTRITION, STAGE TIMOTHY H&N CANCER): Calories: 6112-3430 kcal (30 - 35 kcal / kg BW) Protein: 110-145 g protein (1.5 - 2.0 g / kg BW) Fluid: Approx.4595-7145 mL fluid (30-35 mL / kg BW) NUTRITION DIAGNOSIS: 1.) Inadequate oral intake related to altered GI function, as evidenced nausea / vomiting x 4 days prior to admit. INTERVENTION: 1.) Once TF to be restarted, recommend trophic TF of Jevity 1.5 starting at 15 ML/hr x 12 hours to establish tolerance. If pt tolerates trophic TF well, recommend increasing TF by 10 ML every 4 hours as tolerated to goal rate of 70 ML/hr x 23 hours to provide 2415 kcals and 103 g protein per day. 2.) Recommend flush H2O flush dose of 30 ml every 2 hours while pt is receiving IV fluids. Once IV fluid have been discontinued, recommend increasing H2O flush dose to 100 ML every 2 hours to provide an additional 1200 ML free H2O per day for a total of 2359 ml free H2O per day. MONITOR/EVALUATE: Enteral feeding initiation / tolerance, labs, GI/nutrition status. Follow per high nutrition risk guidelines. Addendum: 01/26/17 at [address] Order received to start TF today. As PEG tube is currently requiring multiple dressing changes, changed Free H2O flush to 50 ML/hr to limit volume. will continue to monitor for GI tolerance.
[2017-01-26] VITALS (8 sets, daily range): BP systolic 120–139; BP diastolic 77–82; PULSE 70–89; RESP 14–17; O2SAT 96–99
[2017-01-26] MEDS: Ondansetron 2 mg/mL 2 mL Inj IVPUSH PRN ×6 (01:00→22:13)
[2017-01-26] MEDS: HYDROmorphone 1 mg/mL Inj IVPUSH PRN ×6 (01:01→22:15)
[2017-01-26] MEDS: Lactated Ringer's 1,000 ML IV SCH (02:54)
[2017-01-26 07:00] LABS: INR 3.91 ratio
--- NOTE | 2017-01-26 07:26 | NUR ---
PEG tube dressing/P/N and changing every 4-6hrs as needed throughout day. Nurse checking for drainage and changing dressing during night hours. No drainage noticed at dressing change during this shift. Adequate Nausea and Pain control with reglan, dilaudid and Zofran. Ativan for anxiety (helps with nausea as reported by and pt).
[2017-01-26] MEDS: Pantoprazole 4 mg/mL 10 mL Inj IVPUSH SCH ×2 (08:14→16:14)
--- NOTE | 2017-01-26 09:35 | PCM.PHAPRO ---
Progress Date of Service: Jan 26, 2017 Nausea and vomiting/4 days. Vomiting of blood /2 episodes Dx: portal vein thrombosis INR goal 2-3 INR 3.91 (above goal) hold warfarin tonight draw INR AM labs on 01/27 per pharmacy Kirby Cuadra PharmD Kirby Cuadra Jan 26, 2017 09:35
[2017-01-26] MEDS: 0.9% Sodium Chloride 1,000 ML IV SCH (11:07)
--- NOTE | 2017-01-26 12:09 | NUR ---
New orders New orders for tube feeding. dietary aware and will bring tube feed once available. No tube feedings arrived from dietary yet.
--- NOTE | 2017-01-26 13:04 | PCM.PNMED ---
Subjective Date of Service Jan 26, 2017 Subjective Nausea and vomiting markedly improved on Reglan. Exam Vital Signs Vital Sign - Last Date Time Temp Pulse Resp B/P Pulse Ox O2 Delivery O2 Flow Rate FiO2 01/26/17 12:30 37.2 83 16 127/78 97 Room Air Intake and Output 01/25/17 01/25/17 01/26/17 Cumulative From/Thru 14:59 22:59 06:59 01/24/17 08:49 - 01/26/17 06:47 Intake Total 1542 ml 1355 ml 5223 ml Output Total 400 ml 600 ml 1000 ml Balance 1142 ml 755 ml 4223 ml Intake Oral 300 ml 50 ml 350 ml IV Total 1242 ml 1305 ml 4873 ml Output Urine Total 400 ml 600 ml 1000 ml # Voids 4 Exam Gen. patient is lying comfortably in hospital bed HEENT: Head is normocephalic atraumatic, Pupils equal and reactive, extraocular movements intact, Lungs clear to auscultation bilaterally Heart regular rate and rhythm without murmurs gallops or rubs Abdomen soft nontender without hepatosplenomegaly,PEG in place ,site has scanty yellowish discharge, no erythema or tenderness. Extremities pulses are present dorsalis pedis posterior tibialis and radial. Skin is warm and dry there are no rashes, Psych alert and oriented to person place and time Neuro cranial nerves II through XII are grossly intact Lymph: There is no lymphadenopathy appreciated in the cervical supra infraclavicular regions : no maxwell IVs and Medications Medications Reviewed: Medications were reviewed in detail Lab and Diagnostics Result Diagram: 01/25/17 0415 01/25/17 0415 X-Rays, CTs and MRIs PROCEDURE: XR TUBE CHECK W CON INDICATIONS: with gastrograffin, no barium, eval G tube COMPARISON: [facility], CT, CT ABD PELVIS W CON, 01/20/2017, 14:31. FINDINGS: Showcase Maker view the abdomen demonstrates gastrostomy tube. Gastrografin with total volume of 120 cc was instilled which demonstrates appropriate positioning of the gastrostomy tube and retention balloon. There is opacification of the stomach which appears normal. There is mild delay in emptying of the stomach into the duodenum estimated at several minutes. Peristalsis in the duodenum shows back and forth movement of the contrast. Overtime the contrast does move forward. Otherwise the duodenal loop appears normal and anatomic with contrast extending into the proximal jejunum. No extravasation of contrast media. The attending physician was personally present in the room during the examination. IMPRESSION: Slight delay in emptying of contrast from the stomach through the duodenal loop otherwise appropriate positioning of the gastrostomy tube and no definite gastric or duodenal intraluminal filling defects are seen. 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 # Intractable nausea and vomiting,acute,poa -Unclear etiology.possibly due to gastroparesis given delayed emptying on gastrografin study and response to reglan Chemo and radiation completed more than3 weeks ago -PEG tube Gastrografin shows delayed emptying but no obstruction.discussed with surgery,started Reglan 10mg achs . Nausea and vomiting markedly improved per patient -NS 60ml/h -liquid diet as tolerated ,PEG tube feeding started -Zofran when necessary -No evidence of infection -trickle feeding today ,start at 10ml,advance slowly about 16nea4g # Upper GI bleeding due to suspected Anjali-Mari -Patient had vomiting of blood at the end of vomiting episode -Hemoglobin stable -Protonix IV twice a day -resume warfarin # squamous carcinoma of the base of the tongue with two necrotic left neck nodes, stage TIMOTHY- POA, active. Completed treatment with combined modality therapy with cisplatin last given 12/22/2016 and radiation treatment last given December 30. His Oncologist, Dr. Randall Reynolds, - S/P PEG tube. #Malnutrition- present on admit, active. 2/2 to 2 dysphagia and odynophagia. Patient has loss about 20-40 pounds over the last 2 months. . -PEG tube feeding when vomiting resolves #history of portal vein thrombosis and and multiple superficial thromboses- POA , active. on chronic anticoagulation with Coumadin which was held due to suspected Anjali-Mari - resumed warfarin Patient admitted under inpatient status with expected length of stay > 2 midnights for severity of present symptoms, complexities of treatment plan and risk for adverse events full code disposition: Possible discharge tomorrow [facility] and [facility] formula supply Fredrick Blas MD Jan 26, 2017 13:04
--- NOTE | 2017-01-26 15:57 | NUR ---
Gave access to [facility] and called and left Jackeline Conner message regarding potential discharge tomorrow and need for resumption. Called [facility] and let them know that patient is like to discharge tomorrow and will need to resume tube feeds. PER PCU RN and MD orders.
--- NOTE | 2017-01-26 17:02 | NUR ---
Social Work- Readiness for D/C/Multidisciplinary Rounds Data: EMR reviewed. Pt is on day 2 of hospitalization for BAKARI, Dehydration. Pt is not medically ready for d/c, anticipate tomorrow. Pt will require resumption of [facility] and tube feeding supplies through [facility]. Resumption orders received. SOFTWARE TEST ANALYST notified companies of admission and resumption orders. SW will facilitate resumption at discharge. Pt to discharge home with his to transport via POV. SW will continue to follow. Assessment: Pt who medically requires [facility] RN for dressing changes and [facility] for tube feeding supplies. Plan: Pt to resume HH services and tube feeding at d/c. SW to facilitate resumption at d/c. Pt to d/c home with spouse to transport via POV. SW will continue to follow. IVONNE Mathis
--- NOTE | 2017-01-26 17:31 | NUR ---
Tube feedings Tube feedings started as ordered, Jevity 1.5Cal at 10cc/hour per Dr. Blas, advance by 10cc/hour every 4 hours, with flush 30ml every 2 hours. See enteral feeding orders. per Dr. Blas stop tube feeding if nausea or vomiting. Tolerating tube feedings so far this shift. Stable vital signs. PRN Dilaudid, Antiemetic, and anti anxiety given as ordered with effective results. No reports of nausea or vomiting this shift. per patient last Bm yesterday, per spouse he had BM 2 days ago. Bowel sounds present all four quadrants. Stable mood. uses call light appropriately. Continue to monitor.
[2017-01-27 04:25] VITALS: PULSE 101
[2017-01-27] MEDS: Ondansetron 2 mg/mL 2 mL Inj IVPUSH PRN ×3 (05:52→14:31)
[2017-01-27] MEDS: HYDROmorphone 1 mg/mL Inj IVPUSH PRN ×3 (05:53→14:31)
[2017-01-27 06:00] VITALS: BP 128/89; PULSE 79; RESP 18; O2SAT 96
[2017-01-27 06:28] LABS: INR 2.95 ratio
--- NOTE | 2017-01-27 06:44 | NUR ---
nausea/pain medicated twice my shift w/Zofran/Ativan/Dilaudid w/effect does feel TF is increasing nausea
[2017-01-27] MEDS: Pantoprazole 4 mg/mL 10 mL Inj IVPUSH SCH (07:52)
[2017-01-27 08:00] VITALS: PULSE 84
[2017-01-27 09:08] LABS: BASOPHILS % (AUTO) 0.6 % (0-3); EOSINOPHILS % (AUTO) 0.9 % (0-5); MONOCYTES % (AUTO) 9.4 % (4-12); Mean Corpuscular Hemoglobin 28.9 pg (27.0-35.0); Mean Corpuscular Volume 86.5 fL (81-100); NEUTROPHILS % (AUTO) 57.2 % (40-74); Platelet Count 167 bil/L (150-400)
[2017-01-27 09:35] LABS: Phosphorus 2.2 mg/dL (2.5-4.9)
[2017-01-27 10:15] VITALS: BP 120/80; PULSE 85; RESP 14; O2SAT 97
[2017-01-27 10:53] LABS: Magnesium 1.4 mg/dL (1.6-2.6); Phosphorus 3.2 mg/dL (2.5-4.9)
[2017-01-27] MEDS ORDERED: Magnesium Sulf 4 Gm/100 mL H2O 4 GM in IV Premix 1 EACH IV ONE (11:45)
[2017-01-27] MEDS ORDERED: Potassium Chloride 20 mEq/15 mL 15mL Oral Soln PO ONE (11:45)
--- NOTE | 2017-01-27 12:27 | PCM.DIMED ---
Discharge Instructions Date of Service Jan 27, 2017 Dates of Hospitalization Jan 24, 2017 at 10:33 Discharge Diagnosis Discharge Diagnosis # Intractable nausea and vomiting,acute,poa -possibly due to gastroparesis # Upper GI bleeding due to suspected Anjali-Mari # squamous carcinoma of the base of the tongue with two necrotic left neck nodes, stage TIMOTHY- POA, active. #Malnutrition- present on admit, active. 2/2 to 2 dysphagia and odynophagia. #history of portal vein thrombosis and and multiple superficial thromboses- POA , active. on chronic anticoagulation Patient Instructions Patient Instructions You were hospitalized due to intractable nausea and vomiting. Workup reveals delayed emptying.you are started on Reglan which seems to help. Please continue Reglan 10 mg via PEG or oral before meals at bedtime. Please continue magnesium supplement. Please follow-up with oncologist in 1 week. Follow-up Provider: Benjamín Davalos MD Follow-up with PCP in: 2 weeks Provider: Randall Reynolds MD Follow-up in: 1 week Fredrick Blas MD Jan 27, 2017 12:27
[2017-01-27] MEDS ORDERED: MAGN400T4 PO (12:28)
[2017-01-27] MEDS ORDERED: METO-301 PO (12:58)
--- NOTE | 2017-01-27 13:01 | NUR ---
Social Work: Readiness for Discharge/Multidisciplinary Rounds D: EMR reviewed. Pt is on day 3 of hospitalization for BAKARI, Dehydration. Pt discussed in multidisciplinary rounds. Per multidisciplinary rounds, pt is medically stable for discharge home today. MD notified that discharge instructions/orders must include res[facility] of [facility] and tube feeding supplies through [facility]. Resumption orders received. SW will facilitate resumption at discharge. Pt to discharge home with his to transport via POV. SW will continue to follow. A: Pt who medically requires [facility] RN for dressing changes and [facility] for tube feeding supplies. P: Pt to resume HH services and tube feeding at discharge. Pt to discharge home with spouse to transport via POV. SW will continue to follow. IVONNE Paulino
--- NOTE | 2017-01-27 13:14 | NUR ---
Resume HH through [facility] and resume tube feeds through [facility] Addendum: 01/27/17 at 1316 by LOW MCGEE Amended: Links added.
--- NOTE | 2017-01-27 15:10 | NUR ---
Faxed discharge instructions to [facility] and [facility] per APPLICATION INTEGRATION ARCHITECT. updated APPLICATION INTEGRATION ARCHITECT.
--- NOTE | 2017-01-27 15:16 | NUR ---
Social Work: Discharge D: EMR reviewed. Pt is on day 3 of hospitalization for BAKARI, Dehydration. Pt discussed in multidisciplinary rounds. Per multidisciplinary rounds, pt is medically stable for discharge home today. MD notified that discharge instructions/orders must include resumption of [facility] and tube feeding supplies through [facility]. Resumption orders received. Security System Installer faxed resumption orders to [facility]. Pt to discharge home with his to transport via POV. SW will continue to follow. A: Pt who medically requires [facility] RN for dressing changes and [facility] for tube feeding supplies. P: Pt to resume HH services and tube feeding at discharge. Security System Installer faxed resumption orders to [facility] and confirmed receipt. Pt to discharge home with spouse to transport via POV. No other SW needs identified. No other MD orders received. IVONNE Paulino
--- NOTE | 2017-01-27 16:14 | NUR ---
NUTRITION FOLLOW UP/TUBE FEEDING ASSESS: 56 YO male admitted with intractable nausea and vomiting x 4 days. Per notes, nausea/vomiting has improved, but pt with diarrhea x 2 over night. Pt had PEG placed on 01/14. PEG tube Gastrografin study showed no obstruction but delayed gastric emptying per notes. Spoke with pt and today re tube feeding tolerance. Pt notes improvement in n/v with addition of reglan for motility. Questions starting bolus tube feeds and tapering down time of enteric feeds to 12hrs. Pt to discharge with [facility] today per social services assistant notes. PMHx: Squamous carcinoma of the base of the tongue with two necrotic left neck nodes, stage TIMOTHY, odynophagia, portal vein thrombosis with multiple superficial thromboses on chronic anticoagulation with Coumadin, dyslipidemia, malnutrition, GERD. DIET: NPO. MD notes indicate liquid diet as tolerated NUTRITION SUPPORT: Jevity 1.5 currently running at 60ml/hr with goal rate of 70 ML/hr x 23 hours to provide 2415 kcals and 103 g protein per day.H2O flush dose of 50 ml every 2 hours while pt is receiving IV fluids. Once IV fluid have been discontinued, recommend increasing H2O flush dose to 100 ML every 2 hours to provide an additional 1200 ML free H2O per day for a total of 2359 ml free H2O per day. LABS: Reviewed. Glu 126, Ca 8.0, K+3.3, Mg 1.4, Alb 2.0 MEDICATIONS: Reviewed. Reglan GI symptoms / stool: BM x 2 (01/25) Skin Integrity: No issues reported. ANTHROPOMETRICS: Current Wt: 73 kg. Wt 01/10/2017 just prior to PEG tube placement 75.6 kg; BMI: 23.8 Weight loss (per last admission documentation): 23.2 kg x 3 months (23.48%), 10.1 kg x 1 month (11.79%) ESTIMATED NEEDS (SEVERE MALNUTRITION, STAGE TIMOTHY H&N CANCER): Calories: 2462-9321 kcal (30 - 35 kcal / kg BW) Protein: 110-145 g protein (1.5 - 2.0 g / kg BW) Fluid: Approx.6864-2282 mL fluid (30-35 mL / kg BW) NUTRITION DIAGNOSIS: 1.) Inadequate oral intake related to altered GI function, as evidenced nausea / vomiting x 4 days prior to admit--- PERSISTS. On tube feeding. INTERVENTION: 1.) Discussed maintaining continuous feedings (x23hr) to establish tolerance before transitioning to reduced schedule of 12hr or bolus feeds. 2.) Pt to review information with RN at discharge re DELTA contacts if questions arise re home tube feeding regimen/transition off continuous. Left [facility] [address] contact information if questions arise. 3.) In event pt unable to tolerate current tube feeding, consider low fiber formula with pt. motility issues. Promote at 100ml/hr x 23hrs would provide 2300 kcal, 143g protein with NO fiber. MONITOR/EVALUATE: Enteral feeding tolerance, labs, GI/nutrition status. Follow per high nutrition risk guidelines.
--- NOTE | 2017-01-27 16:38 | NUR ---
Discharge Pt dc'd in WC with family at 1610 following IV mag infusion completion. All discharge paperwork reviewed and patient and verbalized understanding of all instructions and follow up needs. All belongings with pt on dc.
--- NOTE | 2017-01-28 14:07 | PCM.DC.MED ---
Discharge Summary Date of Service Jan 28, 2017 Dates of Hospitalization Date of Hospital Admission Jan 24, 2017 at 10:33 Date of Discharge: Jan 28, 2017 Providers: Admitting Physician: Fredrick Saldana MD Primary Care Physician: Benjamín Davalos MD Attending Physician: Fredrick Saldana MD Diagnosis at Time of Discharge Diagnosis at Time of Discharge # Intractable nausea and vomiting,acute,poa -possibly due to gastroparesis # Upper GI bleeding due to suspected Anjali-Mari # squamous carcinoma of the base of the tongue with two necrotic left neck nodes, stage TIMOTHY- POA, active. #Malnutrition- present on admit, active. 2/2 to 2 dysphagia and odynophagia. #history of portal vein thrombosis and and multiple superficial thromboses- POA , active. on chronic anticoagulation Consultations Oncology Procedures XRay, CTs & MRIs PROCEDURE: XR TUBE CHECK W CON INDICATIONS: with gastrograffin, no barium, eval G tube COMPARISON: [facility], CT, CT ABD PELVIS W CON, 01/20/2017, 14:31. FINDINGS: Head Athletic Trainer/Strength Coach view the abdomen demonstrates gastrostomy tube. Gastrografin with total volume of 120 cc was instilled which demonstrates appropriate positioning of the gastrostomy tube and retention balloon. There is opacification of the stomach which appears normal. There is mild delay in emptying of the stomach into the duodenum estimated at several minutes. Peristalsis in the duodenum shows back and forth movement of the contrast. Overtime the contrast does move forward. Otherwise the duodenal loop appears normal and anatomic with contrast extending into the proximal jejunum. No extravasation of contrast media. The attending physician was personally present in the room during the examination. IMPRESSION: Slight delay in emptying of contrast from the stomach through the duodenal loop otherwise appropriate positioning of the gastrostomy tube and no definite gastric or duodenal intraluminal filling defects are seen. 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 He was started on tube feeds at 10ml/h and advanced 10 mL every day and eventually achieved goal of 70ml/h . He had pain and discharge at PEG tube placement site. He was given oral antibiotics by his PCP for possible PEG tube site infection. He was evaluated by surgeon outpatient and site reportedly does not seem to be infected and was advised to continue local wound care For the last 4 days he has been having nausea and repeated episodes of vomiting even if tube feeding rate was lowered and eventually stopped. He continued to have repeated episodes of vomiting. He had 2 episodes with vomiting of blood, small amount, at the end of vomiting episode. Vomiting has worsened in the last 2 days He was seen by PCP 2 days ago and advised to hold warfarin for now. He went to see his radiation oncologist today and was noted to be dehydrated and transferred to Ed for evaluation Denies fever. Denies cough. Denies abdominal distention. No bowel habit change last radiation 12/22, last chemotherapy 12/30 per patient ED course : Initial HR 119, BP 113/81, other vital signs was given. No leukocytosis. 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 # Intractable nausea and vomiting,acute,poa -Unclear etiology.possibly due to gastroparesis given delayed emptying on gastrografin study and response to reglan Chemo and radiation completed more than3 weeks ago -PEG tube Gastrografin shows delayed emptying but no obstruction.discussed with surgery,started Reglan 10mg achs . Nausea and vomiting markedly improved per patient -liquid diet as tolerated ,PEG tube feeding restarted and tolerated well -Zofran when necessary -No evidence of infection # Upper GI bleeding due to suspected Anjali-Mari -Patient had vomiting of blood at the end of vomiting episode -Hemoglobin stable -resumed warfarin # squamous carcinoma of the base of the tongue with two necrotic left neck nodes, stage TIMOTHY- POA, active. Completed treatment with combined modality therapy with cisplatin last given 12/22/2016 and radiation treatment last given December 30. His Oncologist, Dr. Randall Reynolds, - S/P PEG tube. #Malnutrition- present on admit, active. 2/2 to 2 dysphagia and odynophagia. Patient has loss about 20-40 pounds over the last 2 months. . -PEG tube feeding #history of portal vein thrombosis and and multiple superficial thromboses- POA , active. on chronic anticoagulation with Coumadin which was held due to suspected Anjali-Mari - resumed warfarin Patient admitted under inpatient status with expected length of stay > 2 midnights for severity of present symptoms, complexities of treatment plan and risk for adverse events full code disposition: [facility]home [facility] and [facility] for formula supply Exam Vital Signs (Last) Date Time Temp Pulse Resp B/P Pulse Ox O2 Delivery O2 Flow Rate FiO2 01/27/17 10:15 37.0 85 14 120/80 97 Room Air Exam Gen. patient is lying comfortably in hospital bed HEENT: Head is normocephalic atraumatic, Pupils equal and reactive, extraocular movements intact, Lungs clear to auscultation bilaterally Heart regular rate and rhythm without murmurs gallops or rubs Abdomen soft nontender without hepatosplenomegaly,PEG in place ,site has scanty yellowish discharge, no erythema or tenderness. Extremities pulses are present dorsalis pedis posterior tibialis and radial. Skin is warm and dry there are no rashes, Psych alert and oriented to person place and time Neuro cranial nerves II through XII are grossly intact Lymph: There is no lymphadenopathy appreciated in the cervical supra infraclavicular regions : no maxwell Test 01/25/17 04:15 01/27/17 05:40 01/27/17 08:55 01/27/17 10:00 Procalcitonin 0.15ng/mL (0.00-0.08) Prothrombin Time 32.3sec (8.1-12.5) Prothromb Time International Ratio 2.95ratio White Blood Count 3.2th/mm3 (3.8-10.1) Red Blood Count 2.66mil/mm3 (4.40-5.80) Hemoglobin 7.7g/dL (13.8-17.2) Hematocrit 23.0% (41.0-50.0) Mean Corpuscular Volume 86.5fL (81-100) Mean Corpuscular Hemoglobin 28.9pg (27.0-35.0) Mean Corpuscular Hemoglobin Concent 33.5% (32.0-37.0) Red Cell Distribution Width 13.3% (12.3-15.4) Platelet Count 167bil/L (150-400) Neutrophils (%) (Auto) 57.2% (40-74) Lymphocytes (%) (Auto) 31.0% (14-46) Monocytes (%) (Auto) 9.4% (4-12) Eosinophils (%) (Auto) 0.9% (0-5) Basophils (%) (Auto) 0.6% (0-3) Total Bilirubin 0.5mg/dL (0.0-1.2) Aspartate Amino Transf (AST/SGOT) 25U/L (0-50) Alanine Aminotransferase (ALT/SGPT) 22U/L (0-44) Alkaline Phosphatase 44U/L (25-150) Total Protein 3.4g/dL (6.4-8.4) Albumin 2.0g/dL (3.4-5.0) Sodium Level 136mEq/L (134-144) Potassium Level 3.3mEq/L (3.5-5.2) Chloride Level 99mEq/L (97-108) Carbon Dioxide Level 22mmol/L (18-29) Blood Urea Nitrogen 11mg/dL (6-24) Creatinine 0.97mg/dL (0.76-1.27) Estimat Glomerular Filtration Rate 86mL/min (>59) Glucose Level 126mg/dL (60-99) Calcium Level 8.0mg/dL (8.5-10.1) Phosphorus Level 3.2mg/dL (2.5-4.9) Magnesium Level 1.4mg/dL (1.6-2.6) Discharge Medications Discharge Medications Fluconazole (Fluconazole Liquid) 10 Mg/1 Ml Susp.recon 10 ML PO DAILY (Reported ) Magnesium Oxide (Magnesium Oxide) 400 Mg Tablet 400 MG PO DAILY Prescribed by: FREDRICK SALDANA MD Metoclopramide (Reglan) 10 Mg Tablet 10 MG PO QID Prescribed by: FREDRICK SALDANA MD Simvastatin (Simvastatin) 20 Mg Tablet 20 MG PO HS (Reported) Warfarin Sodium (Warfarin Sodium) 7.5 Mg Tablet 7.5 MG PO DAILY (Reported) As needed Docusate Sodium (Colace) 100 Mg Capsule 100 MG PO TID PRN PRN For Constipation ( Reported) Hydromorphone (Hydromorphone) 1 Mg/1 Ml Liquid 6 MG PO Q4H PRN PRN For Pain Prescribed by: MARILOU BRUNO MD Lorazepam (Lorazepam) 0.5 Mg Tablet 0.5 MG PO TID PRN PRN For Anxiety (Reported ) Ondansetron ODT (Ondansetron ODT) 4 Mg Tab.rapdis 4 MG PO q6 hours PRN PRN For Nausea (Reported) Followup Plan Disposition: home Patient Instructions You were hospitalized due to intractable nausea and vomiting. Workup reveals delayed emptying.you are started on Reglan which seems to help. Please continue Reglan 10 mg via PEG or oral before meals at bedtime. Please continue magnesium supplement. Please follow-up with oncologist in 1 week. Follow-up Provider: Benjamín Davalos MD Follow-up with PCP in: 2 weeks Provider: Randall Reynolds MD Follow-up in: 1 week Time spent 35 minutes copies to: Benjamín Davalos MD; Randall Reynolds MD, Melaku MD Jan 28, 2017 14:07
== END 2017-01-27 16:10 | disposition home health service (06) | DRG 391 ==
LOC: SED 08:45 → MOC 10:33
PROVIDERS: ADMIT Internal Medicine; ATTEND Internal Medicine
DX: K31.84 Gastroparesis (principal); E43 Unspecified severe protein-calorie malnutrition; C01 Malignant neoplasm of base of tongue; E78.5 Hyperlipidemia, unspecified; R13.10 Dysphagia, unspecified; E86.0 Dehydration; K21.9 Gastro-esophageal reflux disease without esophagitis; Z86.718 Personal history of other venous thrombosis and embolism; Z79.01 Long term (current) use of anticoagulants; Z87.891 Personal history of nicotine dependence; Z93.1 Gastrostomy status; Z68.23 Body mass index [BMI] 23.0-23.9, adult

== ENCOUNTER 2017-02-14 00:24 | Emergency (ER) | payer OTHER ==
[~2017-02-14] VITALS: Ht 175.3 cm; Wt 75.0 kg
[~2017-02-14 00:24] MED LIST changes: -Lidocaine 2% 5 mL Topical Jelly ONE; -Lidocaine Topical 2% 30 mL Jelly ONE
[2017-02-14 00:31] VITALS: BP 120/83; PULSE 99; RESP 18; O2SAT 97
--- NOTE | 2017-02-14 00:48 | ED.REPORT ---
HPI-General Illness Date of Service Feb 14, 2017 ED Provider: Dr. 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 He reports that he was adjusting the tube, when it fell out of place .He denies any pain, or any other symptoms. Nursing Notes Stated Complaint: PEG TUBE FELL OUT Chief Complaint: General Complaint Nursing Notes Reviewed: Yes Allergies: Coded Allergies: No Known Allergies (Unverified , 01/24/17) Scheduled Fluconazole (Fluconazole Liquid) 10 Mg/1 Ml Susp.recon 10 ML PO DAILY Magnesium Oxide (Magnesium Oxide) 400 Mg Tablet 400 MG PO DAILY Metoclopramide (Reglan) 10 Mg Tablet 10 MG PO QID Simvastatin (Simvastatin) 20 Mg Tablet 20 MG PO HS Warfarin Sodium (Warfarin Sodium) 7.5 Mg Tablet 7.5 MG PO DAILY Scheduled PRN Docusate Sodium (Colace) 100 Mg Capsule 100 MG PO TID PRN PRN For Constipation Hydromorphone (Hydromorphone) 1 Mg/1 Ml Liquid 6 MG PO Q4H PRN PRN For Pain Lorazepam (Lorazepam) 0.5 Mg Tablet 0.5 MG PO TID PRN PRN For Anxiety Ondansetron ODT (Ondansetron ODT) 4 Mg Tab.rapdis 4 MG PO q6 hours PRN PRN For Nausea General Time Seen by MD: 00:47 Chief Complaint Other (Dislodged PEG tube) Hx Obtained From: Patient Arrived By: Walk-in Sudden in Onset?: Yes Onset Occurred: Just prior to arrival Symptom Duration: Since onset Location: : Abdomen Quality: Painful Severity: Current: Mild Severity: Maximum: Moderate Similar Sx Previous: Yes Past Medical History Past Medical History Notes: Code status: Full code Past Medical History Throat and tongue cancer on radiation therapy Past Surgical History Hernia/Tonsils G-tube placement Smoking History Former Smoker Social History Lives in [place] Other Social History: Good social support, Ambulatory Status Independent Review of Systems Full Review of Systems Constitutional: Denies: Chills, Fever, Malaise, Weakness - generalized Respiratory: Denies: Non-productive cough, Shortness of breath, Wheezing Cardiovascular: Denies: Syncope GI: Reports: Abdominal pain, Denies: Nausea, Vomiting Male: Denies Urinary frequency, Denies Urinary urgency Musculoskeletal: Denies: Neck pain Complete sys rev & neg: except as marked. Physical Exam Vital Signs Vital Signs Date Time Temp Pulse Resp B/P Pulse Ox O2 Delivery O2 Flow Rate FiO2 02/14/17 00:31 37.2 99 18 120/83 97 Room Air Initial VS: Reviewed General/Constitutional: Well-developed, Well-nourished Head / Eyes: Atraumatic, Normocephalic, PERRL ENT: Mucous membranes moist, Conjunctiva normal, No scleral icterus Neck: Supple, Non-tender, Full range of motion Respiratory: Breath sounds normal, Clear to auscultation, No respiratory distress Cardiovascular: Regular rate & rhythm, Heart sounds normal, Intact distal pulses Skin: Warm, Dry, No cyanosis Neurologic: Alert, Oriented, Nonfocal Abdomen: Non-tender dislodged PEG tube Re-Eval/Medical Decision Source of Hx: Old records Time of Eval: 01:30 Re-Evaluation/Progress Note: A maxwell is succefully placed. Pt is rechecked and informed of his diagnosis and the plan to discharge him at this time. He understands and agrees, all questions are addressed. Counseled Regarding: Diagnosis, Need for follow-up, When/why to return to ED Discharge & Departure Primary Impression: PEG tube malfunction Disposition: Home Discharge Condition All VS Reviewed: Yes Condition: Stable Patient Instructions: How to Use and Care for Your PEG Tube (ED) Additional Instructions: Keep the Maxwell catheter in place until you are able to follow up with Dr. Holland. Do not feed through this tube. Call first thing in the morning to schedule an appointment to have a PEG tube replaced. Return to the emergency department if the Maxwell falls out before you are able to see the surgeon, or with any other worsening or concerning symptoms. Referrals: Benjamín Davalos MD (PCP) Tino Holland MD Attestation Portions of this note were transcribed by Radha Rivera. I, Dr. Curran personally performed the history, physical exam and medical decision-making; I reviewed and confirmed the accuracy of the information in the transcribed note. Signed by: Danny Childress, 02/14/2017 01:03 copies to: Benjamín Davalos MD; Tino Holland MD, Todd P DO Feb 14, 2017 00:48 ALETA RIVERA Feb 14, 2017 00:54
[2017-02-14] MEDS ORDERED: HYDROmorphone 1 mg/mL Inj IM ONE (00:55)
[2017-02-14] MEDS ORDERED: HYDROmorphone 1 mg/mL Inj IVPUSH ONE (01:20)
== END 2017-02-14 01:09 | disposition home or self-care (01) ==
LOC: SED 00:24
DX: K94.23 Gastrostomy malfunction (principal); Z87.891 Personal history of nicotine dependence; Z85.810 Personal history of malignant neoplasm of tongue; Z85.21 Personal history of malignant neoplasm of larynx; Z79.01 Long term (current) use of anticoagulants
CPT/HCPCS: 96374; 99284; J1170

== ENCOUNTER → 2017-02-14 | Day surgery (SDC) | payer OTHER ==
[~2017-02-14] MED LIST changes: +DOCU-41 PO; -LORA2VIA3 IVPUSH; -LOV80 SUBQ; +Lidocaine 2% 5 mL Topical Jelly ONE; +Lidocaine Topical 2% 30 mL Jelly ONE; +MAGN400T4 PO; +METO-301 PO; -ONDA4SOL2 PO; -POLY17PO6 PO
== END | disposition home or self-care (01) ==
LOC: END 12:35
PROVIDERS: ATTEND Student in an Organized Health Care Education/Training Program
DX: T85.518A Breakdown (mechanical) of other gastrointestinal prosthetic devices, implants and grafts, initial encounter (principal); Z85.819 Personal history of malignant neoplasm of unspecified site of lip, oral cavity, and pharynx